=== PATIENT | female | born 1970 | race Caucasian/White ===

== ENCOUNTER → 2018-01-16 16:15 | Outpatient (CLI) | payer BC, SELFPAY ==
--- NOTE | 2018-01-16 | NVE_ITS ---
Venous Exam Indications: 782.3 Edema. 729.5 Pain in limb. History of pericarditis Denies recenttrauma. IMPRESSIONS No evidence of deep or superficial vein thrombosis involving the left lower extremity Left lower extremity venous duplex evaluation. Doppler flow study including spectral analysis, color and fatima scale imaging. Location: Vascular laboratory. Patient status: Outpatient. Tables: Venous flow and imaging: + +-------+ + Location Overall Flow properties + +-------+ + Left common femoral Patent Normal phasicity; spontaneous; normal augmentation; compressible + +-------+ + Left saphenofemoral junction Patent Compressible + +-------+ + Left profunda femoral Patent Compressible + +-------+ + Left femoral Patent Normal phasicity; spontaneous; normal augmentation; compressible + +-------+ + Left greater saphenous Patent Normal phasicity; spontaneous; normal augmentation; compressible + +-------+ + Left popliteal Patent Normal phasicity; spontaneous; normal augmentation; compressible + +-------+ + Left posterior tibial Patent Compressible + +-------+ + Left peroneal Patent Compressible + +-------+ + Left gastrocnemius Patent Compressible + +-------+ + Left soleal Patent Compressible + +-------+ + (Report amended ) Electronically signed by: Sebastien Erickson [id number]
== END ==
PROVIDERS: PCP Internal Medicine Adolescent Medicine; Visit Provider Nurse Practitioner Family
DX: M79.89 Other specified soft tissue disorders (principal)
CPT/HCPCS: 93971

== ENCOUNTER → 2018-10-16 17:40 | Outpatient (CLI) | payer BC, SELFPAY ==
[2018-10-17 14:04] LABS: Microscopic, Urine URINE MICROSCOPIC (MICROSCOPIC)
[2018-10-17 14:10] LABS: Appearance,Urine CLEAR (Clear); Bilirubin,Urine Negative (Negative); Blood, Urine Negative (Negative); Color,Urine YELLOW (Yellow); Glucose,Urine (UA) Negative (Negative); Ketones,Urine Negative (Negative); Leukocyte Esterase,Urine Negative (Negative); Nitrate,Urine Negative (Negative); Protein,Urine Negative (Negative); Urobilinogen,Urine 0.2 EU/dl (0.2)
[2018-10-17 14:16] LABS: WBC,Urine Occasional #/hpf (0-3)
== END ==
PROVIDERS: Visit Provider Urology
DX: R30.0 Dysuria (principal)
CPT/HCPCS: 81001; 87086

== ENCOUNTER 2018-11-21 13:33 | Emergency (ER) | payer BC, SELFPAY ==
[2018-11-21 13:52] VITALS: BP 148/98; PULSE 95; RESP 18; TEMP 36.6; O2SAT 99; BMI 31.7
[2018-11-21 14:04] LABS: Apearance,Urine Clear (Clear); Color,Urine Yellow (Yellow)
[2018-11-21 14:05] LABS: Bilirubin,Urine Negative (Negative); Blood, Urine Negative (Negative); Glucose,Urine (UA) Negative (Negative); Ketones,Urine Negative (Negative); Protein,Urine Negative (Negative); Urobilinogen,Urine 0.2 EU/dl (0.2)
[2018-11-21 14:06] LABS: UTC Leukocyte Esterase,Urine Trace (Negative); UTC Nitrate,Urine Negative (Negative)
--- NOTE | 2018-11-21 14:07 | HMH.EDUTC ---
[facility] [place] Clinical Impression: UTI (urinary tract infection) Qualifiers: Urinary tract infection type: site unspecified Hematuria presence: without hematuria Qualified Code(s): N39.0 - Urinary tract infection, site not specified Disposition: Home, Self-Care Condition on Discharge: Good Instructions: Urinary Tract Infection Additional Instructions: 1. Drink plenty of fluids. 2. Take the antibiotics as prescribed. 3. Follow up with your urologist as you had already planned to do. 4. Return or f/u if you are not getting better in 24 hours or so. GO TO THE ER FOR ANY WORSENING SYMPTOMS OR LIFE THREATENING SYMPTOMS Prescriptions: Ciprofloxacin/Ciprofloxa HCl [Ciprofloxacin ER 500 mg Tab] 500 mg PO DAILY 10 Days #20 tab Phenazopyridine HCl [Pyridium 200mg Tablet] 200 pow PO TID #6 tab Referrals: Luisito Luciano MD [Primary Care Provider] - Time of Disposition: 14:17 Medical Decision Making - Medical Records Medical records reviewed: No: I reviewed the patient's medical records. - Herson Inquiry Pt receiving controlled substance: No Herson was queried for this patient: No Vital Signs: 11/21/18 13:52 11/21/18 14:18 Temperature 97.9 F 98.1 F Temperature Source Tympanic Oral Pulse Rate 89 Pulse Rate [Brachial] 95 H Respiratory Rate 18 18 Blood Pressure 141/90 H Blood Pressure [Right Arm] 148/98 H Blood Pressure Mean [Right Arm] 114 Blood Pressure Source [Right Arm] Automatic Cuff 02 Sat by Pulse Oximetry 99 Oxygen Delivery Method Room Air Room Air - Lab Data Lab results reviewed: Yes: I reviewed the patient's lab results. Lab Results 11/21/18 13:45: Urine Color Yellow, Urine Appearance Clear, Urine pH 6.0, Ur Specific [place] 1.020, Urine Protein Negative, Urine Glucose (UA) Negative, Urine Ketones Negative, Urine Blood Negative, Urine Nitrate Negative, Urine Bilirubin Negative, Urine Urobilinogen 0.2, Ur Leukocyte Esterase Trace, Influenza Type A Ag Negative, Influenza Type B Ag Negative Orders (Tests/Meds): ORDERS Category Date Time Status Urine Culture Stat Micro 11/21/18 14:20 Received [facility] [place] HPI - General Stated complaint: Possible UTI Time Seen by Provider: 11/21/18 14:00 Mode of Arrival: Ambulatory Source of Information: Patient Limitations: No Limitations Description of Symptoms (Recalled from Triage Doc. by RN): fever, chills, and body aches, along with painful and frequent urination for 3 days HEENT Symptoms (Recalled from RN notes): Yes Resp Symptoms (Recalled from RN notes): No Skin Symptoms (Recalled from RN notes): No MS Symptoms (Recalled from RN notes): No Functional Status (Recalled from RN notes): n/a - History of Present Illness Provider Complaint: Pt states she has been having a fever, chills, and body aches, along with painful and frequent urination for 3 days - Related Data Previous Rx's Medication Instructions Recorded Azithromycin [Z-Fede 250mg Tab] 250 mg PO UD DOSE PK #6 tab 11/02/18 Promethazine/Dextromethorphan 5 ml PO Q6HP PRN #240 syrup 11/02/18 [Promethazine-Dm Syrup] Ciprofloxacin/Ciprofloxa HCl 500 mg PO DAILY 10 Days #20 tab 11/21/18 [Ciprofloxacin ER 500 mg Tab] Phenazopyridine HCl [Pyridium 200 pow PO TID #6 tab 11/21/18 200mg Tablet] Allergies Allergy/AdvReac Type Severity Reaction Status Date / Time butorphanol [From STADOL] Allergy Severe S-DIFF. Verified 11/02/18 17:08 BREATHING Sulfa (Sulfonamide Allergy Intermediate I-HIVES Verified 11/02/18 17:08 Antibiotics) [SULFA (SULFONAMIDE ANTIBIOTICS)] - Worker's Comp Is this a Worker's Comp case?: No Is this an [facility] Worker's Comp?: No Is this a [place] Worker's Comp?: No [facility] History - Hepatitis A Screen Drug use history?: No High risk sexual behaviors?: No History of sexually transmitted infection?: No Currently employed?: No Childcare worker?: No Do you have indoor plumbing?: Yes Do you have electricity?: Yes Att
[2018-11-21 14:12] LABS: UTC Influenza A Antigen Negative (Negative); UTC Influenza B Antigen Negative (Negative)
--- NOTE | 2018-11-21 14:14 | ED_ITS ---
[facility] [place] Disposition Clinical Impression: UTI (urinary tract infection) Qualifiers: Urinary tract infection type: site unspecified Hematuria presence: without hematuria Qualified Code(s): N39.0 - Urinary tract infection, site not specified Disposition: Home, Self-Care Condition on Discharge: Good Instructions: Urinary Tract Infection Additional Instructions: 1. Drink plenty of fluids. 2. Take the antibiotics as prescribed. 3. Follow up with your urologist as you had already planned to do. 4. Return or f/u if you are not getting better in 24 hours or so. GO TO THE ER FOR ANY WORSENING SYMPTOMS OR LIFE THREATENING SYMPTOMS Prescriptions: Ciprofloxacin/Ciprofloxa HCl [Ciprofloxacin ER 500 mg Tab] 500 mg PO DAILY 10 Days #20 tab Phenazopyridine HCl [Pyridium 200mg Tablet] 200 pow PO TID #6 tab Referrals: Luisito Luciano MD [Primary Care Provider] - Time of Disposition: 14:17 Medical Decision Making - Medical Records Medical records reviewed: No: I reviewed the patient's medical records. - Herson Inquiry Pt receiving controlled substance: No Herson was queried for this patient: No Vital Signs: 11/21/18 13:52 11/21/18 14:18 Temperature 97.9 F 98.1 F Temperature Source Tympanic Oral Pulse Rate 89 Pulse Rate [Brachial] 95 H Respiratory Rate 18 18 Blood Pressure 141/90 H Blood Pressure [Right Arm] 148/98 H Blood Pressure Mean [Right Arm] 114 Blood Pressure Source [Right Arm] Automatic Cuff 02 Sat by Pulse Oximetry 99 Oxygen Delivery Method Room Air Room Air - Lab Data Lab results reviewed: Yes: I reviewed the patient's lab results. Lab Results 11/21/18 13:45: Urine Color Yellow, Urine Appearance Clear, Urine pH 6.0, Ur Specific [place] 1.020, Urine Protein Negative, Urine Glucose (UA) Negative, Urine Ketones Negative, Urine Blood Negative, Urine Nitrate Negative, Urine Bilirubin Negative, Urine Urobilinogen 0.2, Ur Leukocyte Esterase Trace, Influenza Type A Ag Negative, Influenza Type B Ag Negative Orders (Tests/Meds): ORDERS Category Date Time Status Urine Culture Stat Micro 11/21/18 14:20 Received [facility] [place] HPI - General Stated complaint: Possible UTI Time Seen by Provider: 11/21/18 14:00 Mode of Arrival: Ambulatory Source of Information: Patient Limitations: No Limitations Description of Symptoms (Recalled from Triage Doc. by RN): fever, chills, and body aches, along with painful and frequent urination for 3 days HEENT Symptoms (Recalled from RN notes): Yes Resp Symptoms (Recalled from RN notes): No Skin Symptoms (Recalled from RN notes): No MS Symptoms (Recalled from RN notes): No Functional Status (Recalled from RN notes): n/a - History of Present Illness Provider Complaint: Pt states she has been having a fever, chills, and body aches, along with painful and frequent urination for 3 days - Related Data Previous Rx's Medication Instructions Recorded Azithromycin [Z-Fede 250mg Tab] 250 mg PO UD DOSE PK #6 tab 11/02/18 Promethazine/Dextromethorphan 5 ml PO Q6HP PRN #240 syrup 11/02/18 [Promethazine-Dm Syrup] Ciprofloxacin/Ciprofloxa HCl 500 mg PO DAILY 10 Days #20 tab 11/21/18 [Ciprofloxacin ER 500 mg Tab] Phenazopyridine HCl [Pyridium 2
[2018-11-21 14:18] VITALS: BP 141/90; PULSE 89; RESP 18; TEMP 36.7; O2SAT 100
== END 2018-11-21 14:21 | disposition home or self-care (01) ==
PROVIDERS: Emergency Provider Nurse Practitioner Family; PCP Internal Medicine Adolescent Medicine
DX: N30.00 Acute cystitis without hematuria (principal); Z88.2 Allergy status to sulfonamides
CPT/HCPCS: 81003; 87086; 87088; 87186; 87804; 99202

== ENCOUNTER → 2019-01-27 10:20 | Outpatient (CLI) | payer BC, SELFPAY ==
--- NOTE | 2019-01-27 10:21 | US_ITS ---
US Kidney CLINICAL INDICATION: Frequent urinary tract infections, history of renal stones ITS.REASON: R10.9 Unspecified abdominal pain ORDERING PHYSICIAN: Fawad Miles MD PATIENT AGE: 48 years Comparison: None FINDINGS: The kidneys are normal size shape and position. No hydronephrosis mass perinephric fluid or other significant anomalies. No obvious renal calculi. IMPRESSION: Negative bilateral renal ultrasound
== END ==
PROVIDERS: PCP Internal Medicine Adolescent Medicine; Visit Provider Urology
DX: R10.9 Unspecified abdominal pain (principal)
CPT/HCPCS: 76770

== ENCOUNTER 2019-03-01 11:36 | Emergency (ER) | payer BC, SELFPAY ==
[2019-03-01 11:50] VITALS: BP 130/87; PULSE 83; RESP 18; TEMP 36.9; O2SAT 98; BMI 31.7
--- NOTE | 2019-03-01 12:00 | HMH.EDUTC ---
[facility] [place] [facility] [place] Clinical Impression: Otitis media Qualifiers: Otitis media type: unspecified Laterality: bilateral Qualified Code(s): H66.93 - Otitis media, unspecified, bilateral Disposition: Home, Self-Care Condition on Discharge: Good Instructions: Middle Ear Infection, Ear Infections (Middle Ear) (Alternative Therapy), Ear Infections (Alternative Therapy), Ibuprofen, Acetaminophen (Alternative Therapy) Additional Instructions: *Monitor Temp, Over the counter Motrin or Tylenol as directed/as needed Tylenol every 4 hours and Motrin every 6 hours (as long as your family doctor has told you that you can take it) for fever or pain. and straight to ER if unable to lower temp less than 101.0 after medication given *Warm salt water gargles may help to soothe the throat *Throat Lozenges *Warm fluids *Sleep elevated *Humidifier/Vaporizer Take antibiotics as prescribed Return if needed Follow up IMMEDIATELY for new or worsening symptoms or no Noticeable improvement over the next 48-72 hours. 911 for difficulty breathing or swallowing Prescriptions: Amoxicillin [Amoxicillin 500mg Cap] 500 mg PO TID #30 cap Referrals: Luisito Luciano MD [Primary Care Provider] - As needed Time of Disposition: 12:10 Medical Decision Making - Herson Inquiry Pt receiving controlled substance: No Herson was queried for this patient: No Vital Signs: 03/01/19 11:50 Temperature 98.4 F Temperature Source Oral Pulse Rate [Left Apical] 83 Respiratory Rate 18 Blood Pressure [Right Arm] 130/87 Blood Pressure Mean [Right Arm] 101 02 Sat by Pulse Oximetry 98 Oxygen Delivery Method Room Air [facility] [place] [facility] [place]PI - General Stated complaint: ear pain Time Seen by Provider: 03/01/19 12:03 Mode of Arrival: Ambulatory Source of Information: Patient Limitations: No Limitations Description of Symptoms (Recalled from Triage Doc. by RN): PT C/O RT EAR PAIN HEENT Symptoms (Recalled from RN notes): Yes Resp Symptoms (Recalled from RN notes): No Skin Symptoms (Recalled from RN notes): No MS Symptoms (Recalled from RN notes): No Functional Status (Recalled from RN notes): N/A - History of Present Illness Provider Complaint: Patient states that she has been having pain in her right ear that has continued to get worse since Friday State that she had dental work done a few weeks ago on the right side and not sure how long the ear had been hurting because she thought it was still pain from her dental work - Related Data Home Medications Medication Instructions Recorded Confirmed levothyroxine 88 mcg tablet 88 mcg PO DAILY 01/14/19 02/11/19 Previous Rx's Medication Instructions Recorded Amoxicillin [Amoxicillin 500mg 500 mg PO TID #30 cap 03/01/19 Cap] Allergies Allergy/AdvReac Type Severity Reaction Status Date / Time butorphanol [From STADOL] Allergy Severe S-DIFF. Verified 02/11/19 12:06 BREATHING Sulfa (Sulfonamide Allergy Intermediate I-HIVES Verified 02/11/19 12:06 Antibiotics) [SULFA (SULFONAMIDE ANTIBIOTICS)] - Worker's Comp Is this a Worker's Comp case?: No [facility] History - Hepatitis A Screen Drug use history?: No High risk sexual behaviors?: No History of sexually transmitted infection?: No Currently employed?: No Childcare worker?: No Do you have indoor plumbing?: Yes Do you have electricity?: Yes Attestation statement:: This patient has been screened for Hepatitis A risk factors. I have reviewed the patient's past medical history: Yes Medical History: Denies:: Cancer, Diabetes Mellitus Type 1, Diabetes Mellitus Type 2, MRSA Laterality Cases: Bilateral: Myringotomy (Ear Tubes), Tonsillectomy Other Surgeries: Yes: Hysterectomy-Total Amputation: No Fractures: No - Social History Smoking Status: Never smoker Alcohol Intake: never Occupational Status: employed Household Members: spouse, children - Psychiatric History Expresses thoughts of harming self/others: None Suicide Plan
--- NOTE | 2019-03-01 12:03 | ED_ITS ---
[facility] Disposition Clinical Impression: Otitis media Qualifiers: Otitis media type: unspecified Laterality: bilateral Qualified Code(s): H66.93 - Otitis media, unspecified, bilateral Disposition: Home, Self-Care Condition on Discharge: Good Instructions: Middle Ear Infection, Ear Infections (Middle Ear) (Alternative Therapy), Ear Infections (Alternative Therapy), Ibuprofen, Acetaminophen ( Alternative Therapy) Additional Instructions: *Monitor Temp, Over the counter Motrin or Tylenol as directed/as needed Tylenol every 4 hours and Motrin every 6 hours (as long as your family doctor has told you that you can take it) for fever or pain. and straight to ER if unable to lower temp less than 101.0 after medication given *Warm salt water gargles may help to soothe the throat *Throat Lozenges *Warm fluids *Sleep elevated *Humidifier/Vaporizer Take antibiotics as prescribed Return if needed Follow up IMMEDIATELY for new or worsening symptoms or no Noticeable improvement over the next 48-72 hours. 911 for difficulty breathing or swallowing Prescriptions: Amoxicillin [Amoxicillin 500mg Cap] 500 mg PO TID #30 cap Referrals: Luisito Luciano MD [Primary Care Provider] - As needed Time of Disposition: 12:10 Medical Decision Making - Herson Inquiry Pt receiving controlled substance: No Herson was queried for this patient: No Vital Signs: 03/01/19 11:50 Temperature 98.4 F Temperature Source Oral Pulse Rate [Left Apical] 83 Respiratory Rate 18 Blood Pressure [Right Arm] 130/87 Blood Pressure Mean [Right Arm] 101 02 Sat by Pulse Oximetry 98 Oxygen Delivery Method Room Air [facility] HPI - General Stated complaint: ear pain Time Seen by Provider: 03/01/19 12:03 Mode of Arrival: Ambulatory Source of Information: Patient Limitations: No Limitations Description of Symptoms (Recalled from Triage Doc. by RN): PT C/O RT EAR PAIN HEENT Symptoms (Recalled from RN notes): Yes Resp Symptoms (Recalled from RN notes): No Skin Symptoms (Recalled from RN notes): No MS Symptoms (Recalled from RN notes): No Functional Status (Recalled from RN notes): N/A - History of Present Illness Provider Complaint: Patient states that she has been having pain in her right ear that has continued to get worse since Friday State that she had dental work done a few weeks ago on the right side and not sure how long the ear had been hurting because she thought it was still pain from her dental work - Related Data Home Medications Medication Instructions Recorded Confirmed levothyroxine 88 mcg tablet 88 mcg PO DAILY 01/14/19 02/11/19 Previous Rx's Medication Instructions Recorded Amoxicillin [Amoxicillin 500mg 500 mg PO TID #30 cap 03/01/19 Cap] Allergies Allergy/AdvReac Type Severity Reaction Status Date / Time butorphanol [From STADOL] Allergy Severe S-DIFF. Verified 02/11/19 12:06 BREATHING Sulfa (Sulfonamide Allergy Intermediate I-HIVES Verified 02/11/19 12:06 Antibiotics) [SULFA (SULFONAMIDE ANTIBIOTICS)] - Worker's Comp Is this a Worker's Comp case?: No H History - Hepatitis A Screen Drug use history?: No High risk sexual behaviors?: No Hist
[2019-03-01 12:11] VITALS: BP 126/66; PULSE 65; RESP 18; TEMP 36.6; O2SAT 100
== END 2019-03-01 12:14 | disposition home or self-care (01) ==
PROVIDERS: Emergency Provider Nurse Practitioner; PCP Internal Medicine Adolescent Medicine
DX: H66.93 Otitis media, unspecified, bilateral (principal); Z88.2 Allergy status to sulfonamides
CPT/HCPCS: 99201

== ENCOUNTER 2019-03-23 17:10 | Emergency (ER) | payer BC, SELFPAY ==
[2019-03-23 17:27] VITALS: BP 138/89; PULSE 70; RESP 20; TEMP 36.8; O2SAT 100; BMI 31.6
--- NOTE | 2019-03-23 17:54 | HMH.EDUTC ---
[facility] [place] Disposition Clinical Impression: Otitis media Qualifiers: Otitis media type: suppurative Chronicity: acute Laterality: left Recurrence: non-recurrent Spontaneous tympanic membrane rupture: without spontaneous rupture Qualified Code(s): H66.002 - Acute suppurative otitis media without spontaneous rupture of ear drum, left ear Disposition: Home, Self-Care Condition on Discharge: Good Instructions: Middle Ear Infection Additional Instructions: Drink plenty of fluids. Take tylenol or ibuprofen for pain or fever Take all the antibiotics as prescribed. Follow up with your regular doctor. Follow up with Dr. Lion. You may need to have t-tubes put back in if you keep getting ear infections. GO TO THE ER FOR ANY WORSENING OR LIFE THREATENING SYMPTOMS Prescriptions: methylPREDNISolone [Medrol] 4 mg PO DIRECTED 6 Days #21 tab.ds.pk Cefdinir [Omnicef 300mg Capsule] 300 mg PO BID #20 cap Referrals: Luisito Luciano MD [Primary Care Provider] - Time of Disposition: 17:55 Medical Decision Making - Medical Records Medical records reviewed: Yes: I reviewed the patient's medical records. - Herson Inquiry Pt receiving controlled substance: No Herson was queried for this patient: No Vital Signs: 03/23/19 17:27 03/23/19 17:56 Temperature 98.3 F 98.3 F Temperature Source Oral Pulse Rate 70 Pulse Rate [Right Radial] 70 Respiratory Rate 20 20 Blood Pressure 138/89 Blood Pressure [Right Arm] 138/89 Blood Pressure Mean [Right Arm] 105 Blood Pressure Source [Right Arm] Automatic Cuff Blood Pressure Position [Right Arm] Sitting 02 Sat by Pulse Oximetry 100 Oxygen Delivery Method Room Air [facility] [place] HPI - General Stated complaint: ear ache Time Seen by Provider: 03/23/19 17:54 Mode of Arrival: Ambulatory Source of Information: Patient Limitations: No Limitations Description of Symptoms (Recalled from Triage Doc. by RN): C/O LT EARACHE HEENT Symptoms (Recalled from RN notes): Yes (EARACHE) Resp Symptoms (Recalled from RN notes): No Skin Symptoms (Recalled from RN notes): No MS Symptoms (Recalled from RN notes): No Functional Status (Recalled from RN notes): N/A - History of Present Illness Provider Complaint: She c/o left ear ache for the past 2 days. - Related Data Home Medications Medication Instructions Recorded Confirmed levothyroxine 88 mcg tablet 88 mcg PO DAILY 01/14/19 02/11/19 Previous Rx's Medication Instructions Recorded Amoxicillin [Amoxicillin 500mg 500 mg PO TID #30 cap 03/01/19 Cap] Cefdinir [Omnicef 300mg Capsule] 300 mg PO BID #20 cap 03/23/19 methylPREDNISolone [Medrol] 4 mg PO DIRECTED 6 Days #21 03/23/19 tab.ds.pk Allergies Allergy/AdvReac Type Severity Reaction Status Date / Time butorphanol [From STADOL] Allergy Severe S-DIFF. Verified 02/11/19 12:06 BREATHING Sulfa (Sulfonamide Allergy Intermediate I-HIVES Verified 02/11/19 12:06 Antibiotics) [SULFA (SULFONAMIDE ANTIBIOTICS)] - Worker's Comp Is this a Worker's Comp case?: No [facility] History - Hepatitis A Screen Drug use history?: No High risk sexual behaviors?: No History of sexually transmitted infection?: No Currently employed?: No Childcare worker?: No Do you have indoor plumbing?: Yes Do you have electricity?: Yes Attestation statement:: This patient has been screened for Hepatitis A risk factors. I have reviewed the patient's past medical history: Yes Medical History: Denies:: Cancer, Diabetes Mellitus Type 1, Diabetes Mellitus Type 2, MRSA Laterality Cases: Bilateral: Myringotomy (Ear Tubes), Tonsillectomy Other Surgeries: Yes: Hysterectomy-Total Amputation: No Fractures: No - Social History Smoking Status: Never smoker Alcohol Intake: never Occupational Status: employed Household Members: spouse, children - Psychiatric History Expresses thoughts of harming self/others: None Suicide Plan Description: No Plan ROS Obtained: Yes All
[2019-03-23 17:56] VITALS: BP 138/89; PULSE 70; RESP 20; TEMP 36.8; O2SAT 100
== END 2019-03-23 17:57 | disposition home or self-care (01) ==
PROVIDERS: Emergency Provider Nurse Practitioner Family; PCP Internal Medicine Adolescent Medicine
DX: H66.002 Acute suppurative otitis media without spontaneous rupture of ear drum, left ear (principal)
CPT/HCPCS: 99201

== ENCOUNTER → 2020-06-19 10:48 | Outpatient (CLI) | payer BC, SELFPAY ==
[2020-06-19 10:53] LABS: Microscopic, Urine URINE MICROSCOPIC (MICROSCOPIC)
[2020-06-19 14:10] LABS: Appearance,Urine CLEAR (Clear); Bilirubin,Urine Negative (Negative); Blood, Urine Negative (Negative); Color,Urine YELLOW (Yellow); Glucose,Urine (UA) Negative (Negative); Ketones,Urine Negative (Negative); Leukocyte Esterase,Urine Negative (Negative); Nitrate,Urine Negative (Negative); Protein,Urine Negative (Negative); Specific Gravity, Urine >= 1.030 (1.005-1.030); Urobilinogen,Urine 0.2 EU/dl (0.2)
== END ==
PROVIDERS: Visit Provider Urology
DX: N39.0 Urinary tract infection, site not specified (principal)
CPT/HCPCS: 81001

== ENCOUNTER → 2021-03-20 17:22 | Outpatient (CLI) | payer BC, SELFPAY | PROVIDERS: Visit Provider Nurse Practitioner Family | DX: N39.0 Urinary tract infection, site not specified (principal) | CPT/HCPCS: 87086 ==

== ENCOUNTER → 2021-03-21 08:45 | Outpatient (CLI) | payer BC, SELFPAY ==
[2021-03-21 13:58] LABS: Basophils % 0.7 % (0.1-2.0); Eosinophils # 0.2 K/mm3 (0.0-0.4); Eosinophils % 3.7 % (0.1-12.0); Hematocrit 35.3 % (37.0-47.0); Hemoglobin 12.5 g/dL (12.2-16.2); Lymphocytes # 1.7 K/mm3 (0.7-4.5); Lymphocytes % 29.3 % (10-50); Mean Corpuscular HGB Conc 35.6 g/dL (31.8-35.4); Mean Corpuscular Hemoglobin 30.1 pg (27.0-31.2); Mean Corpuscular Volume 84.7 fl (81-99); Mean Platelet Volume 9.3 fl (7.4-10.4); Monocytes # 0.3 K/mm3 (0.1-1.0); Monocytes % 5.1 % (1.7-9.3); Neutrophils # 3.6 K/mm3 (1.8-7.8); Neutrophils % 61.2 % (37.0-80.0); Platelet Count 243 K/mm3 (142-424); Red Blood Count 4.16 M/mm3 (4.20-5.40); Red Cell Distribution Width 13.1 % (11.5-17.5); White Blood Count 5.8 K/mm3 (4.8-10.8)
[2021-03-21 14:14] LABS: Alanine Aminotransferase 16 U/L (12-78); Albumin Level 3.9 g/dl (3.5-5.0); Albumin/Globulin Ratio 1.6 (1.1-1.8); Alkaline Phosphatase 90 U/L (38-126); Aspartate Amino Transferase 24 U/L (14-36); Bilirubin,Total 0.6 mg/dl (0.2-1.3); Blood Urea Nitrogen 18 mg/dl (7-17); Carbon Dioxide 28 mmol/L (22.0-30.0); Chloride 107 mmol/L (98-107); Cholesterol 210 mg/dl (140-200); Estimated Glomerular Filt Rate 89 ml/min (>60); GFR (African American) 107 ML/MIN (>60); Globulin 2.4 g/dL (1.3-3.2); Glucose 98 mg/dl (74-100); HDL Cholesterol 52 mg/dl (40-60); Sodium 139 mmol/L (136-145); Total Protein,Serum 6.3 g/dl (6.3-8.2); Triglycerides 171 mg/dl (30-150); VLDL Cholesterol 34 mg/dL (0-40)
[2021-03-21 14:31] LABS: 25-OH Vitamin D, Total 38.9 ng/mL (30-100)
[2021-03-21 14:41] LABS: Direct LDL Cholesterol 119.23 mg/dL (100-129)
[2021-03-21 15:04] LABS: Vitamin B12 655 pg/mL (239-931)
== END ==
PROVIDERS: Visit Provider Nurse Practitioner Family
DX: Z00.00 Encounter for general adult medical examination without abnormal findings (principal); E53.8 Deficiency of other specified B group vitamins; E55.9 Vitamin D deficiency, unspecified; N39.0 Urinary tract infection, site not specified
CPT/HCPCS: 36415; 80053; 80061; 82306; 82607; 85025

== ENCOUNTER → 2021-05-12 17:08 | Outpatient (CLI) | payer BC, SELFPAY | PROVIDERS: PCP Internal Medicine Gastroenterology; Visit Provider Internal Medicine Gastroenterology | DX: Z01.812 Encounter for preprocedural laboratory examination (principal); Z20.822 Contact with and (suspected) exposure to COVID-19; Z12.11 Encounter for screening for malignant neoplasm of colon | CPT/HCPCS: U0003 ==

== ENCOUNTER 2021-05-14 11:39 | Day surgery (SDC) | payer BC, SELFPAY ==
[2021-05-09 13:48] VITALS: BMI 34.0
--- NOTE | 2021-05-14 09:15 | MM_ITS ---
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 R2 CAD reviewed. FINDINGS: Average fibroglandular tissue. Scattered benign-appearing calcifications. Are several small benign-appearing nodules of the right breast which were not readily apparent previously but may have not been seen due to the overlying fibroglandular tissue which has shown some progression. Nodularity noted in the left retroareolar region mid to anterior 3rd probably unchanged given difference in fibroglandular density. IMPRESSION: Probably benign findings. Suggest 6 month follow-up BI-RAD Category: 3 Probably Benign Finding Short Term Follow-Up FOLLOW-UP: 6M 6 Month Follow-up (A letter has been sent to the patient regarding results of the study.) Dictated by: Sebastien Erickson MD 05/22/2021 18:12 Sebastien Erickson MD in [place] 05/22/2021 18:12
[2021-05-14 11:52] VITALS: BP 144/84; PULSE 81; RESP 16; TEMP 36.2; O2SAT 99
--- NOTE | 2021-05-14 12:34 | HMH.ANESCL ---
[facility] Anesthesia Checklist - Patient Identification Patient Identification: Arm Band - Structural Data Admitted From: Home Planned Operative Procedure/s: Colonoscopy Consent for Planned Operative Procedure(s) Verified: Yes - NPO Status Verified Time NPO: 00:00 - Additional verifications Anesthesia Reactions: No Hx Blood Transfusions: No Blood Transfusion Reaction: No - Airway Assessment C-Spine Mobility Assessed: Yes TMJ Mobility Assessed: Yes Dentition: Good Dentition - Neurological Assessment Level of Consciousness: Awake Hx Seizures: No Numbness or tingling in extremities: No - Anesthesia Plan Anesthesia Risk discussed: Yes Anesthesia Plan: Verified ASA Class: II Anesthesia Type: MAC [facility] History I have reviewed the patient's past medical history: Yes Medical History: Reports:: Urinary Tract Infection Denies:: Cancer, Diabetes Mellitus Type 1, Diabetes Mellitus Type 2, Internal Pacemaker, MRSA, Seizures *Have you ever received a pneumonia vaccine?: No *Have you received a flu vaccine this season?: Yes Other Medical History: Reports: Hypothyroidism, Other (Hx of pericarditis). Denies: Blood Transfusion Reaction Anesthesia experience/problems:: None Laterality Cases: Bilateral: Myringotomy (Ear Tubes), Tonsillectomy Other Surgeries: Yes: No Previous Surgery, Hysterectomy-Total (1998). No: Pacemaker Amputation: No Fractures: No - *Social History Last grade of school completed: Advanced degree Smoking Status: Never smoker Alcohol Intake: never Substance Use Type: denies use *Occupational Status:: employed Housing: house Household Members: family *Travel in the last 8 weeks: Inside the [facility] Family Hx:: Cancer, Coronary Artery Disease, Diabetes, Hyperlipidemia
--- NOTE | 2021-05-14 13:35 | P.PCN_ITS ---
[facility] Procedure Note Procedure Note:: Colonoscopy Procedure Report: Colonoscopy with cold snare polypectomy and Endo Clip placement Endoscopist: Jose Elam II, MD Referring physician: Lida BAKER Date of Procedure: May 14, 2021 Equipment: Olympus 190 variable stiffness pediatric colonoscope Sedation: MAC sedation Indication: Mrs. Pak is a 51-year-old female who is here for high risk screening colonoscopy. The patient's mother had colon cancer at the age of 56. The patient reports no abdominal pain, weight loss, change in her bowel habits or rectal bleeding. She does state that Macrobid results in some binding/constipation. She does counteract this with eating probiotic yogurt. Procedure: Prior to the procedure, a history and physical exam was performed, and patient's medications and allergies were reviewed. The risks, benefits and alternatives of the sedation and procedure were discussed with the patient. All questions were answered and informed consent was obtained. The patient was brought to the procedure room. Patient identification and proposed procedure were verified by the physician and the nurse. The patient was placed in a left lateral decubitus position and the scope was passed under direct vision. Throughout the procedure, the patient's blood pressure, pulse, and oxygen saturations were monitored continuously. The colonoscopy was accomplished without difficulty. The patient tolerated the procedure well. Findings: On digital rectal examination there was normal rectal tone. There were no external hemorrhoids. The colonoscope was introduced through the anal canal to the rectum and advanced to the cecum. The ileocecal valve and appendiceal orifice were identified. The scope was advanced a short distance into the ileum which appeared grossly normal. The scope was then withdrawn into the colon. There were 4 colon polyps (cecum x2 (4 and 4 mm), transverse x1 (6 mm) and descending x1 (8 to 9 mm)) which were all removed via cold snare polypectomy. The remaining cecum, ascending, transverse, descending, sigmoid and rectum were grossly normal. There were no other mucosal abnormalities identified. Upon retroflexion within the rectum there were grade 1-2 internal hemorrhoids.The preparation was excellent throughout with Oldham Preparation Score of 9. The cecal time was 13 minutes. Impression: 1. Colonic polyps x4 2. Grade 1-2 internal hemorrhoids Plan: I will follow up the polyp pathology and recommend repeat colonoscopy again in 3-5 years based upon the polyp histology and patient's family history. I would encourage a fiber bowel regimen on a long-term daily maintenance basis.
[2021-05-14 13:37] VITALS: BP 87/58; PULSE 66; RESP 18; TEMP 36.4; O2SAT 93
[2021-05-14 13:47] VITALS: BP 99/74; PULSE 65; RESP 18; O2SAT 96
[2021-05-14 13:58] VITALS: BP 111/74; PULSE 69; RESP 18; O2SAT 97
[2021-05-14 14:06] VITALS: BP 117/83; PULSE 68; RESP 18; O2SAT 96
[2021-05-14 15:25] VITALS: O2SAT 97
== END 2021-05-14 14:11 | disposition home or self-care (01) ==
PROVIDERS: PCP Internal Medicine Adolescent Medicine; Visit Provider Internal Medicine Gastroenterology
PROC: 0DJD8ZZ Inspection of Lower Intestinal Tract, Via Natural or Artificial Opening Endoscopic (ICD-10-PCS; CPT 45378; principal; 2021-05-14 14:00)
DX: Z12.31 Encounter for screening mammogram for malignant neoplasm of breast (principal); Z80.0 Family history of malignant neoplasm of digestive organs; K63.5 Polyp of colon; K64.0 First degree hemorrhoids; E03.9 Hypothyroidism, unspecified; Z82.49 Family history of ischemic heart disease and other diseases of the circulatory system; Z83.438 Family history of other disorder of lipoprotein metabolism and other lipidemia; Z83.3 Family history of diabetes mellitus; Z88.2 Allergy status to sulfonamides; Z88.8 Allergy status to other drugs, medicaments and biological substances; Z79.899 Other long term (current) drug therapy
CPT/HCPCS: 45385; 77063; 77067; J2704

== ENCOUNTER → 2021-10-08 15:50 | Outpatient (CLI) | payer BC, SELFPAY ==
[2021-10-08 16:30] LABS: Adenovirus,PCR Not Detected (NotDetected); Bordetella Pertussis Not Detected (NotDetected); Chlamydophila Pneumoniae, PCR Not Detected (NotDetected); Coronavirus 19, PCR Not Detected (NotDetected); Coronavirus 229E Not Detected (NotDetected); Coronavirus NL63 Not Detected (NotDetected); Coronavirus OC43 Not Detected (NotDetected); Coronovirus HKU1,PCR Not Detected (NotDetected); Influenza A, PCR Not Detected (NotDetected); Influenza AH1, 2009 Not Detected (NotDetected); Influenza AH1, PCR Not Detected (NotDetected); Influenza AH3,PCR Not Detected (NotDetected); Influenza B, PCR Not Detected (NotDetected); Mycoplasma Pneumoniae, PCR Not Detected (NotDetected); Parainfluenza 1, PCR Not Detected (NotDetected); Parainfluenza 2, PCR Not Detected (NotDetected); Parainfluenza 3, PCR Not Detected (NotDetected); Parainfluenza 4, PCR Not Detected (NotDetected); Respiratory Syncytial Virus Not Detected (NotDetected); Rhinovirus/Enterovirus Not Detected (NotDetected)
[2021-10-09 00:24] LABS: Human Metapneumovirus Detected (NotDetected)
== END ==
PROVIDERS: PCP Internal Medicine Adolescent Medicine; Visit Provider Internal Medicine Adolescent Medicine
DX: Z20.822 Contact with and (suspected) exposure to COVID-19 (principal); J06.9 Acute upper respiratory infection, unspecified; B97.81 Human metapneumovirus as the cause of diseases classified elsewhere
CPT/HCPCS: 87581; 87632; 87798; C9803; U0003; U0005

== ENCOUNTER → 2022-02-06 14:29 | Outpatient (CLI) | payer BC, SELFPAY ==
--- NOTE | 2022-02-06 14:29 | MM_ITS ---
PROCEDURE INFORMATION: Exam: MG Bilateral Diagnostic Breast Tomosynthesis Exam date and time: 02/06/2022 2:25 PM Age: 51 years old Clinical indication: Short-term radiographic followup; Bilateral nodules TECHNIQUE: Imaging protocol: Bilateral Diagnostic tomosynthesis and 2D mammography including computer-aided detection (CAD) when performed. Unilateral or bilateral exam. COMPARISON: 1. MG MM DIG SCREENING MAMM BI W/CAD 05/14/2021 9:16 AM 2. MG MY Digital Screen BILAT 01/02/2018 2:14 PM FINDINGS: MAMMOGRAPHY: The breast tissue is composed of scattered areas of fibroglandular density. There is no stellate mass, architectural distortion or suspicious microcalcifications in either breast to suggest malignancy. No suspicious nodularity in either breast. No skin thickening or axillary adenopathy. IMPRESSION: No mammographic evidence of malignancy. Annual bilateral mammographic screening is recommended unless otherwise clinically indicated. ASSESSMENT: BI-RADS Category 1: Negative
== END ==
PROVIDERS: PCP Internal Medicine Adolescent Medicine; Visit Provider Obstetrics & Gynecology
DX: R92.8 Other abnormal and inconclusive findings on diagnostic imaging of breast (principal)
CPT/HCPCS: 77062; 77066; G0279

== ENCOUNTER → 2023-06-02 23:20 | Outpatient (CLI) | payer BC, SELFPAY | PROVIDERS: PCP Family Medicine; Visit Provider Family Medicine | DX: N39.0 Urinary tract infection, site not specified (principal) | CPT/HCPCS: 87086 ==

== ENCOUNTER → 2023-06-20 07:14 | Outpatient (CLI) | payer BC, SELFPAY | PROVIDERS: PCP Family Medicine; Visit Provider Family Medicine | DX: N39.0 Urinary tract infection, site not specified (principal) | CPT/HCPCS: 87086 ==

== ENCOUNTER 2025-04-28 11:54 | Outpatient (CLI) | payer BC, SELFPAY ==
--- OUTSIDE RECORDS SUMMARY | 2025-05-02 11:58 | XMS_ITS | Data Portability ---
Author Organization [facility] [place] CL[place] Address [address] [place] [address] Care Team Providers Care Supervisor Baking Name Role Phone ISRAEL SAUCEDA Radio Repairman AKASH BALDERAS Primary Care Provider KENROY PALACIOS Referring Provider Assessment No assessment recorded. Plan of Treatment Reminders Order Date Submit Date Provider Last Modified By Organization Details Last Modified Time Details Appointments ANNUAL MULTIM[employer] PROJECT MANAGER 2025 08:00A Michelle REED [employer]PORATE LEGAL INTERN Not available Not available Not available RECHECK 2025 02:30P Michelle MORA MD Not available Not available Not available Lab TSH, serum or plasma 2024 025 [facility], [address] [place] [address], [address], 12/06/2024 17:00:15 T4, free, serum 2024 025 [facility], [address] [place] [address], [address], 12/06/2024 17:00:14 T3, free, serum or plasma 2024 025 [facility], [address] [place] [address], [address], 12/06/2024 17:00:13 pap, LB 2024 025 [facility], [address] [place] [address], [address], 11/04/2024 16:51:32 HPV DNA, high-risk 2024 025 [facility], [address] [place] [address], [address], 10/29/2024 16:37:35 magnesium , QN, serum or plasma 2023 024 [facility], [address] [place] [address], [address], 12/08/2023 17:11:51 CMP, serum or plasma 2023 024 [facility], [address] [place] [address], [address], 12/08/2023 17:11:53 vitamin D, 25-hydrox y, total, serum 2023 024 [facility], [address] [place] [address], [address], 12/08/2023 17:11:20 lipid panel, serum 2023 024 [facility], [address] [place] [address], [address], 12/08/2023 17:11:56 TSH, serum or plasma 2023 024 [facility], [address] [place] [address], [address], 12/08/2023 17:06:13 T4, free, serum 2023 024 [facility], [address] [place] [address], [address], 12/08/2023 17:06:11 T3, free, serum or plasma 2023 024 [facility], [address] [place] [address], [address], 12/08/2023 17:06:14 vitamin B12 + folate, serum or blood 2023 024 [facility], [address] [place] [address], [address], 12/08/2023 17:11:21 iron + total iron-bind ing capacity (TIBC), serum 2023 024 [facility], [address] [place] [address], [address], 12/08/2023 17:11:54 glycohemo globin, total, blood 2023 024 [facility], [address] [place] [address], [address], 12/08/2023 16:51:48 CBC w/ auto diff 2023 024 [facility], [address] [place] [address], [address], 12/08/2023 16:37:46 iron + total iron-bind ing capacity (TIBC), serum [email or web address] [place] [address] Laboratory, [address] [place] [address], [address], 10/12/2024 11:38:44 urinalysi s panel, auto 2022 023 Cu/Lc Urology [address], [facility], [place], [address], 09/16/2023 20:00:22 Referral None recorded. Procedures None recorded. Surgeries None recorded. Imaging None recorded. Medication Orders estradiol 0.01% (0.1 mg/gram) vaginal cream 2024 025 [facility], [address] [facility], [place], [address], 10/27/2024 15:39:51 Patient TargetsNo targets recorded. Patient Instructions Encounter Date Encounter Id Patient Instructions Last Modified By Organization Details Last Modified Time 09/15/2023 [id number] do 3 day voiding diary Not available 09/16/2023 19:59:43 09/26/2023 [id number] continue mcbd suppression Not available 09/26/2023 14:06:12 Reason for Referral None Reported. Results Created Date Observation Date Name Description Value Unit Range Abnormal Flag Note LastModifiedBy Organization Detail LastModifiedTime 09/15/20 23 09/15/2023 urina lysis panel , auto Unknown Analyte Clean Catch Not Available Cu/Lc Urolo gy [facility] [address] [facility], [place], [address], 09/15/2023 11:06:01 09/15/20 23 09/15/2023 urina lysis panel , auto Unknown Analyte Yellow Not Available Cu/Lc Urology [facility] [address] [facility], [place], [address], 09/15/2023 11:06:01 09/15/20 23 09/15/2023 urina lysis panel , auto Unknown Analyte Clear Not Available Cu/Lc Urology [facility] [address] [facility], [place], [address], 09/15/2023 11:06:01 09/15/20 23 09/15/2023 urina lysis panel , auto Unknown Analyte 1.015 Not Available Cu/Lc Urology [facility] [address] [facility], [place], [address], 09/15/2023 11:06:01 09/15/20 23 09/15/2023 urina lysis panel , auto Unknown Analyte 5.0 Not Available Cu/Lc Urology [facility] [address] [facility], [place], [address], 09/15/2023 11:06:01 09/15/20 23 09/15/2023 urina lysis panel , auto Unknown Analyte 25 Rivka/ul Trace Not Available Cu/Lc Urolo gy [address], [place], [address], 09/15/2023 11:06:01 09/15/20 23 09/15/2023 urina lysis panel , auto Unknown Analyte Negati ve Not Available Cu/Lc Urolo gy [address], [place], [address], 09/15/2023 11:06:01 09/15/20 23 09/15/2023 urina lysis panel , auto Unknown Analyte Negati ve Not Available Cu/Lc Urolo gy [address] [facility], [place], [address], 09/15/2023 11:06:01 09/15/20 23 09/15/2023 urina lysis panel , auto Unknown Analyte Normal Not Available Cu[facility]Lc Urology [address] [facility], [place], [address], 09/15/2023 11:06:01 09/15/20 23 09/15/2023 urina lysis panel , auto Unknown Analyte Negati ve Not Available Cu/Lc Urolo gy [address] [facility], [place], [address], 09/15/2023 11:06:01 09/15/20 23 09/15/2023 urina lysis panel , auto Unknown Analyte Normal Not Available Cu[facility]Lc Urology [address] [facility], [place], [address], 09/15/2023 11:06:01 09/15/20 23 09/15/2023 urina lysis panel , auto Unknown Analyte Negati ve Not Available Cu/Lc Urolo gy [address] [facility], [place], [address], 09/15/2023 11:06:01 09/15/20 23 09/15/2023 urina lysis panel , auto Unknown Analyte Trace Not Available Cu/Lc Urology [address] [facility], [place], [address], 09/15/2023 11:06:01 09/26/20 23 09/26/2023 urina lysis panel , auto Unknown Analyte Clean Catch Not Available [facility] Surgery Schedule [address] [place], [address], 09/26/2023 13:31:04 09/26/20 23 09/26/2023 urina lysis panel , auto Unknown Analyte Yellow Not Available [facility] Surgery Schedule [address] [place], [address], 09/26/2023 13:31:04 09/26/20 23 09/26/2023 urina lysis panel , auto Unknown Analyte Clear Not Available [facility] Surgery Schedule [address] [place], [address], 09/26/2023 13:31:04 09/26/20 23 09/26/2023 urina lysis panel , auto Unknown Analyte 1.010 Not Available [facility] Surgery Schedule [address] [place], [address], 09/26/2023 13:31:04 09/26/20 23 09/26/2023 urina lysis panel , auto Unknown Analyte 1.003- 1.035 Not Available [facility] Schedule [address] [place], [address], 09/26/2023 13:31:04 09/26/20 23 09/26/2023 urina lysis panel , auto Unknown Analyte 6.0 Not Available [facility] Surgery Schedule [address] [place], [address], 09/26/2023 13:31:04 09/26/20 23 09/26/2023 urina lysis panel , auto Unknown Analyte 5.0-8. 0 Not Available [facility] Schedule [address] [place], [address], 09/26/2023 13:31:04 09/26/20 23 09/26/2023 urina lysis panel , auto Unknown Analyte Negati ve Not Available [facility] Surgery Schedule [address] [place] [address], [address], 09/26/2023 13:31:04 09/26/20 23 09/26/2023 urina lysis panel , auto Unknown Analyte Negati ve Not Available [facility] Schedule [address] [place] [address], [address], 09/26/2023 13:31:04 09/26/20 23 09/26/2023 urina lysis panel , auto Unknown Analyte Negati ve Not Available [facility] Schedule [address] [place] [address], [address], 09/26/2023 13:31:04 09/26/20 23 09/26/2023 urina lysis panel , auto Unknown Analyte Negati ve Not Available [facility] Schedule [address] [place] [address], [address], 09/26/2023 13:31:04 09/26/20 23 09/26/2023 urina lysis panel , auto Unknown Analyte Negati ve Not Available [facility] Schedule [address] [place] [address], [address], 09/26/2023 13:31:04 09/26/20 23 09/26/2023 urina lysis panel , auto Unknown Analyte Negati ve Not Available [facility] Schedule [address] [place] [address], [address], 09/26/2023 13:31:04 09/26/20 23 09/26/2023 urina lysis panel , auto Unknown Analyte Normal Not Available [facility] Surgery Schedule [address] [place] [address], [address], 09/26/2023 13:31:04 09/26/20 23 09/26/2023 urina lysis panel , auto Unknown Analyte Normal Not Available [facility] Surgery Schedule [address] [place], [address], 09/26/2023 13:31:04 09/26/20 23 09/26/2023 urina lysis panel , auto Unknown Analyte Negati ve Not Available [facility] Schedule [address] [place], [address], 09/26/2023 13:31:04 09/26/20 23 09/26/2023 urina lysis panel , auto Unknown Analyte Negati ve Not Available [facility] Schedule [address] [place], [address], 09/26/2023 13:31:04 09/26/20 23 09/26/2023 urina lysis panel , auto Unknown Analyte Normal Not Available [facility] Schedule [address] [place], [address], 09/26/2023 13:31:04 09/26/20 23 09/26/2023 urina lysis panel , auto Unknown Analyte Normal 1 mg/dl Not Available [facility] Schedule [address] [place], [address], 09/26/2023 13:31:04 09/26/20 23 09/26/2023 urina lysis panel , auto Unknown Analyte Negati ve Not Available [facility] Surgery Schedule [address] [place], [address], 09/26/2023 13:31:04 09/26/20 23 09/26/2023 urina lysis panel , auto Unknown Analyte Negati ve Not Available [facility] Surgery Schedule [address] [place], [address], 09/26/2023 13:31:04 09/26/20 23 09/26/2023 urina lysis panel , auto Unknown Analyte Negati ve Not Available [facility] Surgery Schedule [address] [place], [address], 09/26/2023 13:31:04 12/08/19 12/08/2023 COMPL ETE BLOOD COUNT white blood cells 6.7 10*3/ uL 3.8-10 .8 normal Not Available [facility] [address] [place] [address], [address], 12/08/2023 16:37:46 12/08/19 24 12/08/2023 COMPL ETE BLOOD COUNT red blood cells 4.12 10*6/ uL 3.80-5 .20 normal Not Available [facility] [address] [place] [address], [address], 12/08/2023 16:37:46 12/08/19 24 12/08/2023 COMPL ETE BLOOD COUNT hemoglobin 13.1 g/dL 12.0-1 6.0 normal Not Available [facility] [address] [place] [address], [address], 12/08/2023 16:37:46 12/08/19 24 12/08/2023 COMPL ETE BLOOD COUNT hematocrit 36.9 % 35.0-4 7.0 normal Not Available [facility] [address] [place] [address], [address], 12/08/2023 16:37:46 12/08/19 24 12/08/2023 COMPL ETE BLOOD COUNT MCV 89 fL 80-100 normal Not Available [facility] [address] [place] [address], [address], 12/08/2023 16:37:46 12/08/19 24 12/08/2023 COMPL ETE BLOOD COUNT MCH 32 pg 26-35 normal Not Available [facility] [address] [place] [address], [address], 12/08/2023 16:37:46 12/08/19 24 12/08/2023 COMPL ETE BLOOD COUNT MCHC 36 g/dL 32-36 normal Not Available [facility] [address] [place] [address], [address], 12/08/2023 16:37:46 12/08/19 24 12/08/2023 COMPL ETE BLOOD COUNT RDW 12.6 % 11.0-1 5.0 normal Not Available [facility] [address] [place] [address], [address], 12/08/2023 16:37:46 12/08/19 24 12/08/2023 COMPL ETE BLOOD COUNT MPV 9.1 fL 6.2-10 .5 normal Not Available [facility] [address] [place] [address], [address], 12/08/2023 16:37:46 12/08/19 24 12/08/2023 COMPL ETE BLOOD COUNT platelet count 199 10*3/ uL 150-40 0 normal Not Available [facility] [address] [place] [address], [address], 12/08/2023 16:37:46 12/08/19 24 12/08/2023 COMPL ETE BLOOD COUNT neutrophil,a bsolute 3.9 10*3/ uL 1.6-8. 4 normal Not Available [facility] [address] [place] [address], [address], 12/08/2023 16:37:46 12/08/19 24 12/08/2023 COMPL ETE BLOOD COUNT lymphocyte,a bsolute 2.1 10*3/ uL 0.4-5. 1 normal Not Available [facility] [address] [place] [address], [address], 12/08/2023 16:37:46 12/08/19 24 12/08/2023 COMPL ETE BLOOD COUNT monocyte,abs olute 0.4 10*3/ uL 0.0-1. 2 normal Not Available [facility] [address] [place] [address], [address], 12/08/2023 16:37:46 12/08/19 24 12/08/2023 COMPL ETE BLOOD COUNT eosinophil,a bsolute 0.2 10*3/ uL 0.0-0. 8 normal Not Available [facility] [address] [place] [address], [address], 12/08/2023 16:37:46 12/08/19 24 12/08/2023 COMPL ETE BLOOD COUNT basophil,abs olute 0.0 10*3/ uL 0.0-0. 3 normal Not Available [facility] [address] [place] [address], [address], 12/08/2023 16:37:46 12/08/19 24 12/08/2023 COMPL ETE BLOOD COUNT % neutrophils 59.0 % 42.0-7 8.0 normal Not Available [facility] [address] [place] [address], [address], 12/08/2023 16:37:46 12/08/19 24 12/08/2023 COMPL ETE BLOOD COUNT % lymphocytes 30.9 % 11.0-4 7.0 normal Not Available [facility] [address] [place] [address], [address], 12/08/2023 16:37:46 12/08/19 24 12/08/2023 COMPL ETE BLOOD COUNT % monocytes 6.0 % 0.0-11 .0 normal Not Available [facility] [address] [place] [address], [address], 12/08/2023 16:37:46 12/08/19 24 12/08/2023 COMPL ETE BLOOD COUNT % eosinophils 3.5 % 0.0-7. 0 normal Not Available [facility] [address] [place] [address], [address], 12/08/2023 16:37:46 12/08/19 24 12/08/2023 COMPL ETE BLOOD COUNT % basophils 0.6 % 0.0-3. 0 normal Not Available [facility] [address] [place] [address], [address], 12/08/2023 16:37:46 12/08/19 24 12/08/2023 COMPL ETE BLOOD COUNT nucleated red cells 0.1 % 0.0-0. 9 normal Not Available [facility] [address] [place] [address], [address], 12/08/2023 16:37:46 12/08/19 24 12/08/2023 COMPL ETE BLOOD COUNT nucleated RBCs, absolute 0.00 10*3/ uL not estab. normal Not Available [facility] [address] [place] [address], [address], 12/08/2023 16:37:46 12/08/19 24 12/08/2023 GLYCO HEMOG LOBIN A1C glyco HGB A1C 5.2 % 0.0-5. 6 normal Not Available [facility] [address] [place] [address], [address], 12/08/2023 16:51:48 12/08/19 24 12/08/2023 GLYCO HEMOG LOBIN A1C estimated avg. glucose 103 mg/dL _(jose enrique c) normal A1c value s betwe en 5.7% to 6.4% indic ate predi abete s. Resul ts 6.5% or great er is diagn ostic of diabe ene. Ameri can Diabe ene Assoc iatio n (diab etes. org) Not Available [facility] [address] [place] [address], [address], 12/08/2023 16:51:48 12/08/19 24 12/08/2023 T4,FR EE T4,free 1.06 NG/dL 0.93-1 .70 normal Not Available [facility] [place], [address], 12/08/2023 17:06:11 12/08/19 24 12/08/2023 TSH TSH 3.070 u[IU] /mL 0.270- 4.200 normal Not Available [facility] [place], [address], 12/08/2023 17:06:12 03/04/20 24 12/08/2023 T3 FREE T3 free 2.73 pg/mL 2.00-4 .40 normal Not Available [facility] [address] [place] [address], [address], 12/08/2023 17:06:14 12/08/19 24 12/08/2023 VITAM IN D 25-OH vitamin D 25-oh, total 31 NG/mL >=30 NG/mL normal Not Available [facility] [address] [place] [address], [address], 12/08/2023 17:11:19 12/08/19 24 12/08/2023 B12/F OLIC ACID PANEL folic acid 17.7 NG/mL 4.6-34 .8 normal Not Available [facility] [address] [place] [address], [address], 12/08/2023 17:11:21 12/08/19 24 12/08/2023 B12/F OLIC ACID PANEL vitamin B12 1044 pg/mL 232-12 45 normal Not Available [facility] [address] [place] [address], [address], 12/08/2023 17:11:21 12/08/19 24 12/08/2023 MAGNE SIUM magnesium 2.0 mg/dL 1.6-2. 6 normal Not Available [facility] [address] [place] [address], [address], 12/08/2023 17:11:51 12/08/19 24 12/08/2023 COMP. METAB OLIC PANEL glucose 108 mg/dL 74-100 high Not Available [facility] [address] [place] [address], [address], 12/08/2023 17:11:53 12/08/19 24 12/08/2023 COMP. METAB OLIC PANEL blood urea nitrogen 18 mg/dL 6-20 normal Not Available [facility] [address] [place] [address], [address], 12/08/2023 17:11:53 12/08/19 24 12/08/2023 COMP. METAB OLIC PANEL creatinine 0.68 mg/dL 0.50-0 .95 normal Not Available [facility] [address] [place] [address], [address], 12/08/2023 17:11:53 12/08/19 24 12/08/2023 COMP. METAB OLIC PANEL BUN/creatini ne ratio 26 (calc ) 10-20 high Not Available [facility] [address] [place] [address], [address], 12/08/2023 17:11:53 12/08/19 24 12/08/2023 COMP. METAB OLIC PANEL sodium 141 mmol/ L 136-14 5 normal Not Available [facility] [address] [place] [address], [address], 12/08/2023 17:11:53 12/08/19 24 12/08/2023 COMP. METAB OLIC PANEL potassium 3.6 mmol/ L 3.4-5. 0 normal Not Available [facility] [address] [place] [address], [address], 12/08/2023 17:11:53 12/08/19 24 12/08/2023 COMP. METAB OLIC PANEL chloride 105 mmol/ L 98-107 normal Not Available [facility] [address] [place] [address], [address], 12/08/2023 17:11:53 12/08/19 24 12/08/2023 COMP. METAB OLIC PANEL carbon dioxide 25 mmol/ L 22-31 normal Not Available [facility] [address] [place] [address], [address], 12/08/2023 17:11:53 12/08/19 24 12/08/2023 COMP. METAB OLIC PANEL anion gap 11 (calc ) 7-25 normal Not Available [facility] [address] [place] [address], [address], 12/08/2023 17:11:53 12/08/19 24 12/08/2023 COMP. METAB OLIC PANEL calcium 9.3 mg/dL 8.6-10 .2 normal Not Available [facility] [address] [place] [address], [address], 12/08/2023 17:11:53 12/08/19 24 12/08/2023 COMP. METAB OLIC PANEL total protein 6.7 g/dL 6.4-8. 3 normal Not Available [facility] [address] [place] [address], [address], 12/08/2023 17:11:53 12/08/19 24 12/08/2023 COMP. METAB OLIC PANEL albumin 4.3 g/dL 3.5-5. 2 normal Not Available [facility] [address] [place] [address], [address], 12/08/2023 17:11:53 12/08/19 24 12/08/2023 COMP. METAB OLIC PANEL globulin 2.4 1.5-4. 5 normal Not Available [facility] [address] [place] [address], [address], 12/08/2023 17:11:53 12/08/19 24 12/08/2023 COMP. METAB OLIC PANEL albumin/glob ulin ratio 1.8 (calc ) 1.1-2. 5 normal Not Available [facility] [address] [place] [address], [address], 12/08/2023 17:11:53 12/08/19 24 12/08/2023 COMP. METAB OLIC PANEL bilirubin, total 0.2 mg/dL 0.1-1. 2 normal Not Available [facility] [address] [place] [address], [address], 12/08/2023 17:11:53 12/08/19 24 12/08/2023 COMP. METAB OLIC PANEL alkaline phosphatase 86 U/L 30-121 normal Not Available [facility] [address] [place], [address], 12/08/2023 17:11:53 12/08/19 24 12/08/2023 COMP. METAB OLIC PANEL AST 12 U/L 0-32 normal Not Available [facility] [address] [place] [address], [address], 12/08/2023 17:11:53 12/08/19 24 12/08/2023 COMP. METAB OLIC PANEL ALT 11 U/L 0-33 normal Not Available [facility] [address] [place] [address], [address], 12/08/2023 17:11:53 12/08/19 24 12/08/2023 COMP. METAB OLIC PANEL GFR 104 >= 60 normal NOT E New calcu latio n for GFR (CKD- EPI 2020) is formu lated witho ut race adjus tment facto rs at the recom menda tion of the [employer] [facility] and [facility]mpineda [facility] ty of Nephr ology . This calcu latio n has not been valid ated in pregn ant women . For pedia beba patie nts refer to https ://andriy langley.jenny buenrostro/pr papoess antal s/KDO QI/gf r_cal culat orPed Not Available [facility] [address] [place] [address], [address], 12/08/2023 17:11:53 12/08/19 24 12/08/2023 IRON PANEL -TOTA L AND TIBC iron 67 ug/dL 37-145 normal Not Available [facility] [address] [place] [address], [address], 12/08/2023 17:11:54 12/08/19 24 12/08/2023 IRON PANEL -TOTA L AND TIBC total iron binding cap. 310 ug/dL _(jose enrique c) 250-45 0 normal Not Available [facility] [address] [place] [address], [address], 12/08/2023 17:11:54 12/08/19 24 12/08/2023 IRON PANEL -TOTA L AND TIBC unsat.iron binding cap. 243 ug/dL 112-34 7 normal Not Available [facility] [address] [place] [address], [address], 12/08/2023 17:11:54 12/08/19 24 12/08/2023 IRON PANEL -TOTA L AND TIBC % saturation 22 %_(ca lc) 15-50 normal Not Available [facility] [address] [place] [address], [address], 12/08/2023 17:11:54 12/08/19 24 12/08/2023 LIPID PROFI LE HDL cholesterol 76 mg/dL 50-242 normal Not Available [facility] [address] [place] [address], [phone], 12/08/2023 17:11:55 12/08/19 24 12/08/2023 LIPID PROFI LE triglyceride s 166 mg/dL 0-149 high TRIGL YCERI DE RANGE S DIMAS L: < 150 BORDE RLINE HIGH: 150 - 199 HIGH: 200 - 499 VERY HIGH: > OR = 500 Not Available [facility] [address] [place] [address], [phone], 12/08/2023 17:11:55 12/08/19 24 12/08/2023 LIPID PROFI LE cholesterol 230 mg/dL 0-199 high YUNI STERO L (TOTA L) RANGE S HOLLIS ABLE: < 200 BORDE RLINE : 200 - 239 HIGHE R RISK: > 239 Not Available [facility] [address] [place] [address], [phone], 12/08/2023 17:11:55 12/08/19 24 12/08/2023 LIPID PROFI LE LDL cholesterol 121 mg/dL _(jose enrique c) 0-99 high LDL YUNI STERO L RANGE S OPTIM AL: < 100 NEAR/ ABOVE OPTIM AL: 100 - 129 BORDE RLINE HIGH: 130 - 159 HIGH: 160 - 189 VERY HIGH: > OR = 190 Not Available [facility] [address] [place], [address], 12/08/2023 17:11:55 10/27/19 25 10/29/2024 HPV, HIGH RISK high risk HPV Negati ve negati ve normal This assay detec ts E6/E7 viral messe nger RNA (mRNA ) from 14 high- risk HPV types (16,1 8,31, 33,35 ,39,4 5,51, 52,56 , 58,59 ,66,6 8) witho ut diffe renti ation . Sensi tivit y may be affec hina by speci men colle ction metho ds, stage of infec tion, and the prese nce of inter ferin g subst ances . Resul ts shoul d be inter prete d in conju nctio n with other avail able labor atory and clini jose enrique data. A negat latrice Aptim a HPV assay resul t does not exclu de the possi bilit y of cytol ogic abnor malit ies or futur e or under lying CIN2, CIN3, or cance r. This test is inten ded for medic al purpo ses and has not been evalu ated in cases of suspe cted abuse . This assay is not inten ded for use as a scree moses devic e for women under age 30 with dimas l cervi jose enrique cytol ogy. The Aptim a HPV assay is not inten ded to subst itute for regul ar cervi jose enrique cytol ogy. Test metho dolog y is Nucle ic Acid Ampli ficat ion (NAAT ) Not Available [facility] [address] [place], [address], 10/29/2024 16:37:35 10/27/19 25 10/27/2024 PAP SMEAR Pap smear SEE BELOW normal Depar tment of Patho logy GYNEC OLOGI JOSE ENRIQUE CYTOL OGY REPOR T NAME: JANI COLINDRES PATHO LOGY NO.: [id number] Copy to: [facility] E OF SPECI MEN: VAGIN AL-TH IN PREP RELEV ANT HISTO RY: No LMP given . Comme nt: HPV CO-TE STING SPECI MEN ADEQU ACY SATIS FACTO RY FOR EVALU ATION . VAGIN AL SMEAR GENER AL CATEG ORIZA TION NEGAT LATRICE FOR INTRA EPITH ELIAL LESIO N OR MALIG MELVIN RELAT ED LABOR ATORY RESUL TS Test Name Resul t Colle cted D and T HIGH RISK HPV Negat latrice 2024 16:27 KATHR YN LILLY S, CT (ASCP ) Venessa d Out Date: 11/04 16:51 Cervi jose enrique/v agina l cytol ogy is a scree moses test with a recog nized false negat latrice rate. New techn ologi es may decre ase, but will not elimi dagoberto false negat latrice resul ts. Regul ar cytol ogy scree moses is recom jay d to minim ize false negat latrice resul ts. The ThinP rep(R ) Imagi ng syste m is used to valentina t in prima ry cervi jose enrique cance r scree moses of ThinP rep(R ) Pap test slide s. Page 1 of 1 Not Available [facility] [address] [place] [address], [place], [phone], 11/04/2024 16:51:32 06/25/20 24 06/23/2024 MAMMO , scree moses, tomos ynthe sis, bilat eral, w/ CAD [facility] [address] [place] [address] Patiariadna t Name: RAIZA Holden LUZMARIA Cooper Yair frank : [id number] Age: 54 years Patien t 0 Orderi ng Provid er: CYNTHIA SA S BEITIN G EXAM DATE: 2023 EXAM: MG SCREEN ING FIONA MAMMOG BEBO INDICA TION: Routin e screen ing. No person al or family histor y of breast cancer . Lifeti me risk of breast cancer 7%. Histor y of matern al grandm other with breast cancer , age 75. PROCED URE: Multis lice imagin g of both breast s was perfor med in standa rd projec tions using Hologi c Seleni a Dimens ions tomosy nthesi s equipm ent (3D mammog krystina) . 2D images were create d from the 3D datase t using C-View softwa re. The study was read with the assist ance of Comput er Aided Detect ion (CAD) softwa re. COMPAR RIGOBERTO: This was compar ed with previo us mammog rhett dated 02/07/20 22, 05/14/20 21 FINDIN GS: There are scatte red areas of fibrog landul ar densit y. No new Mass, area of dwight ectura l distor tion or suspic ious calcif icatio n. IMPRES FLORI: BI-RAD S catego ry 1, Negati ve. There is no eviden ce of malign rodrick. Screen ing mammog rhett are recomm ended in one year. Result s were mailed or given to the patien t. Interp reted By: Xuan contreras MD [facility] onical ly Signed By: Xuan contreras MD on 024 11:59 AM [email or web address] [facility] [address], [phone], 07/09/2024 07:48:13 Result Notes Documentation Provider Name and Address Organization Details Recorded Time Mammo, Screening, Tomosynthesis, Bilateral, W/ Cad : [address] [address] Patient Name: RAIZA ROJO Patient : 1970 Age: 54 years Patient Ordering Provider: KENROY PALACIOS EXAM DATE: 06/23/2024 EXAM: MG SCREENING FIONA MAMMOGRAM INDICATION: Routine screening. No personal or family history of breast cancer. Lifetime risk of breast cancer 7%. History of maternal grandmother with breast cancer, age 75. PROCEDURE: Multislice imaging of both breasts was performed in standard projections using [employer] tomosynthesis equipment (3D mammography). 2D images were created from the 3D dataset using C-View software. The study was read with the assistance of Computer Aided Detection (CAD) software. COMPARISON: This was compared with previous mammograms dated 02/06/2022, 05/14/2021 FINDINGS: There are scattered areas of fibroglandular density. No new Mass, area of architectural distortion or suspicious calcification. IMPRESSION: BI-RADS category 1, Negative. There is no evidence of malignancy. Screening mammograms are recommended in one year. Results were mailed or given to the patient. Interpreted By: Xuan Edouard MD Geena Vazquez [facility] 07/09/2024 07:48:13 Problems Name Problem SNOMED Code Status Onset Date Resolution Date Notes Provider Name and Address Organization Details Recorded Time Lichen sclerosus 848097422 Active 025 M[address]LL [facility]ED [facility] [address] [place] [address], [phone] [place] [address] 15:43:19 Problem Notes Documentation Provider Name and Address Organization Details Recorded Time Urologist Consult Note : [facility] [address], [facility] [id number] (id #[id number], : 1970) [facility] [address] [place] [address] Date: 09/16/2023RE: Raiza Rojo, : 1970, PT ID #[id number] Palacios MD, I would like to thank you for referring Raiza Rojo to our practice for consultation and evaluation. I have enclosed a copy of the office evaluation for your records. Sincerely, Electronically Signed by: DEANNE JUSTIN [facility] Reason/Date UTI 09/15/2023 - 10:30AM - [address] History of Present IllnessRaiza is a 53 yo new female who returns after a 4 1/2 year absence today due to uti. For several years she has had frequent UTIs. For several years she took trimethoprim HS, and then Macrobid HS for suppression. She recently was increased from 50 mg to 100 mg. SHe has frequency x 20/day. She has nocturia. She has no other complaints today. denies hematuria and dysuria.Review of Systems Patient reportsurinary incontinence, increased urinary frequency, and urinary urgency. Physical ExamConstitutional:General Appearance: healthy-appearing and well-nourished. Level of Distress: no acute distress. Lungs:Auscultation:normal rate and rhythm, unlabored. Cardiovascular:Heart Auscultation:no edema, normal pulses. Abdomen:Inspection and Palpation: no tenderness, masses, or CVA tenderness and soft. Female Genitalia:Vulva: no lesions. Bladder/Urethra: normal meatus and bladder non distended. Vagina: no cystocele or rectocele. Cervix: absent;normal. Uterus: absent;normal. Adnexae/Parametria: absent and no adnexal tenderness;or mass. Skin:Inspection and palpation: no rash or lesions.Procedure DocumentationNone recordedAssessment/Plan1. Recurrent urinary tract infection-now needs rfzrrwpiyxC45.0: Urinary tract infection, site not specified URINALYSIS PANEL, AUTO 2. Increased frequency of ivvacxlrjJ44.0: Frequency of micturition URINALYSIS PANEL, AUTO UA Auto/Manual RESULT REFERENCE RANGE SOURCE Clean Catch COLOR Yellow APPEARANCE Clear SPECIFIC GRAVITY 1.015 pH 5.0 LEUKOCYTE ESTERACE 25 Rivka/ul Trace NITRITE Negative PROTEIN Negative GLUCOSE Normal KETONES Negative UROBILINOGEN Normal BILIRUBIN Negative BLOOD Trace Patient Instructionsdo 3 day voiding diary Return to Office DEANNE JUSTIN MD for ASC-CYSTO at SURGERY SCHEDULE on 09/26/2023 at 02:15 PM ALICIA ALARCON APRN for RECHECK at ENDOCRINOLOGY SB on 12/08/2023 at 03:15 PM to see ALICIA ALARCON APRN for RECHECK at ENDOCRINOLOGY SB on or around 12/10/2023 KENROY PALACIOS MD [address] [place] [address], [phone], [facility] 09/17/2023 13:49:12 Procedures Surgical History Date Name Laterality Status Provider Name and Address Organization Details Recorded Time 10/27/19 25 Date of Last Pap Smear completed Bassam Velez [facility] 11/17/2024 08:18:38 06/23/20 24 Most Recent Mammogram completed Kala Chaney [facility] 10/27/2024 15:14:25 09/26/20 23 Cystoscopy [place] [address] [place] [address], [phone], [facility] 09/26/2023 14:06:00 05/13/20 23 Post Void Residual; Ultrasound completed Maryam Christianson [facility] 05/13/2023 10:33:10 Tonsillectomy completed Matilde Nuñez [facility] 05/13/2017 15:38:04 Hysterectomy completed DEANNE JUSTIN MD [address] [place] [address], [phone], [facility] 05/17/2017 08:45:54 Other completed DEANNE JUSTIN MD [address] [place] [address], [address] [place] [address], [facility] 09/16/2023 19:54:51 Other completed DEANNE JUSTIN MD [address] [place] [address], [address] [place] [address], [facility] 05/17/2017 08:45:25 procedure on urinary bladder completed Marcy Rowley [facility] 09/15/2023 10:47:51 myringotomy and insertion of tympanic ventilation tube completed DEANNE JUSTIN MD [address] [place] [address], [address] [place] [address], [facility] 09/16/2023 19:54:41 Imaging Results None recorded. Procedure Notes None recorded. Medical Equipment None Reported. Allergies Allergen ID Allergen Name Allergen Category Reaction Reaction Severity Criticality Documentation Date Start Date Code Code System Note Provider Name and Address Organization Details Recorded Time 997841 Substance with sulfonami de structure and antibacte rial mechanism of action (substanc e) medicatio n Not available Not available Not available 05/13/2017 33714 8003 [facility]ED [facility] 15:33:32 [id number] Protonix medicatio n Not available Not available Not available 05/13/2017 80317 4 RxNorm [facility] 15:34:36 [id number] procaine hydrochlo ride medicatio n Not available Not available Not available 10/27/2024 34994 8 RxNorm Kala Kathryn Chaney [facility] 15:11:04 Medications Name Sig Start Date Stop Date Status Note LastModified by Organization Details LastModified Time amoxicill in 500 mg capsule TAKE 1 CAPSULE BY MOUTH THREE TIMES DAILY 10/27 completed complete d Not Available Not Available Not Available promethaz ine-DM 6.25 mg-15 mg/5 mL oral syrup 03/02 completed Not Available Not Available Not Available neomycin- polymyxin -hydrocor t 3.5 mg/mL-10, 000 unit/mL-1 % ear solution INSTILL 4 DROPS INTO AFFECTED EAR(S) TWICE DAILY FOR 10 DAY 03/27 completed Not Available Not Available Not Available prednison e 10 mg tablet 05/13 completed Not Available Not Available Not Available nitrofura ntoin macrocrys daniel 50 mg capsule TAKE 1 CAPSULE BY MOUTH ONCE DAILY AT BEDTIME FOR UTI PREVENTI ON active Not Available Not Available No t Available cefuroxim e axetil 250 mg tablet 05/13 completed Not Available Not Available Not Available clindamyc in HCl 300 mg capsule 01/13 completed Not Available Not Available Not Available Vitamin C 500 mg tablet TAKE 1 TABLET BY MOUTH THREE TIMES DAILY 05/13 completed Not Available Not Available Not Available azithromy benitez 250 mg tablet 03/02 completed Not Available Not Available Not Available fluconazo le 150 mg tablet 03/27 completed Not Available Not Available Not Available cephalexi n 250 mg capsule TAKE 1 CAPSULE BY MOUTH 4 TIMES DAILY 05/13 completed Not Available Not Available Not Available Synthroid 150 mcg tablet 09/02 completed Not Available Not Available Not Available Claritin 10 mg tablet Daily 05/13 completed Frequenc y: daily;Me dication Descript ion: loratadi ne; Dosage:1 ; Route:or al; refills: 0; Quantity :30 tablet Not Available Not Available Not Available Synthroid 125 mcg tablet 12/16 completed Not Available Not Available Not Available prednison e 20 mg tablet 09/02 completed Not Available Not Available Not Available Synthroid 100 mcg tablet once daily 07/16 completed Not Available Not Available Not Available prednison e 5 mg tablet 05/13 completed Not Available Not Available Not Available Pyridium 200 mg tablet Take 1 tablet 3 times a day by oral route for 10 days. 03/27 completed Not Available Not Available Not Available clobetaso l 0.05 % topical cream APPLY CREAM TOPICALL Y DAILY active Not Available Not Available No t Available penicilli n V potassium 500 mg tablet 03/02 completed Not Available Not Available Not Available potassium chloride ER 10 mEq tablet,ex tended release 09/02 completed Not Available Not Available Not Available acetamino phen 300 mg-codein e 30 mg tablet TAKE 1 TABLET BY MOUTH EVERY 6 HOURS 10/27 completed Not Available Not Available Not Available ciproflox acin 250 mg tablet 12/07 completed Not Available Not Available Not Available trimethop rim 100 mg tablet TAKE 1 TABLET BY MOUTH ONCE DAILY 03/27 completed Not Available Not Available Not Available ciproflox acin 500 mg tablet Take 1 tablet every 12 hours by oral route for 7 days. 03/02 completed Not Available Not Available Not Available omeprazol e 40 mg capsule,d elayed release 09/02 completed Not Available Not Available Not Available liothyron ine 5 mcg tablet TAKE 1 TABLET BY MOUTH ONCE DAILY active Not Available Not Available No t Available ketorolac 10 mg tablet 05/13 completed Not Available Not Available Not Available prednison e 10 mg tablets in a dose pack 03/27 completed Not Available Not Available Not Available meloxicam 7.5 mg tablet 05/13 completed Not Available Not Available Not Available methenami ne hippurate 1 gram tablet TAKE 1 TABLET BY MOUTH TWICE DAILY 05/13 completed Not Available Not Available Not Available amoxicill in 875 mg tablet 01/11 completed Not Available Not Available Not Available famotidin e 20 mg tablet 05/13 completed Not Available Not Available Not Available lorazepam 0.5 mg tablet TAKE 1 TABLET BY MOUTH THREE TIMES DAILY NEEDED FOR ANXIETY 09/15 completed Not Available Not Available Not Available prednison e 1 mg tablet Currentl y takes 6 mg daily ( 7) 12/16 completed Not Available Not Available Not Available cephalexi n 500 mg capsule 01/11 completed Not Available Not Available Not Available erythromy benitez 5 mg/gram (0.5 %) eye ointment 03/02 completed Not Available Not Available Not Available cyanocoba annika (vit B-12) 1,000 mcg/mL injection solution 12/09 completed Not Available Not Available Not Available Synthroid 88 mcg tablet TAKE 1 TABLET BY MOUTH ONCE DAILY active Not Available Not Available No t Available Synthroid 75 mcg tablet TAKE 1 TABLET BY MOUTH ONCE DAILY IN THE MORNING ON AN EMPTY STOMACH 12/07 completed Not Available Not Available Not Available furosemid e 20 mg tablet 05/13 completed Not Available Not Available Not Available Synthroid 112 mcg tablet Daily 05/13 completed Not Available Not Available Not Available levofloxa benitez 500 mg tablet TAKE 1 TABLET BY MOUTH ONCE DAILY FOR 5 DAYS 12/09 completed Not Available Not Available Not Available estradiol 0.01% (0.1 mg/gram) vaginal cream INSERT 1 GRAM VAGINALL Y THREE NIGHTS A WEEK active Not Available Not Available No t Available levofloxa benitez 750 mg tablet TAKE 1 TABLET BY MOUTH ONCE DAILY FOR 5 DAYS 09/15 completed Not Available Not Available Not Available methylpre dnisolone 4 mg tablets in a dose pack 01/11 completed Not Available Not Available Not Available colchicin e 0.6 mg tablet 12/16 completed Not Available Not Available Not Available cefdinir 300 mg capsule TAKE 1 CAPSULE BY MOUTH TWICE DAILY 03/27 completed Not Available Not Available Not Available fluticaso ne propionat e 50 mcg/actua tion nasal spray,marleni pension USE 1 SPRAY(S) IN EACH NOSTRIL ONCE DAILY active Not Available Not Available No t Available amoxicill in 875 mg-potass ium clavulana te 125 mg tablet 09/02 completed Not Available Not Available Not Available neomycin- polymyxin -hydrocor t 3.5 mg-10,000 unit/mL-1 % ear drops,marleni p 03/27 completed Not Available Not Available Not Available Ciprodex 0.3 %-0.1 % ear drops,marleni pension 09/02 completed Not Available Not Available Not Available Prilosec OTC 20 mg tablet,de layed release Take by oral route. 09/02 completed Not Available Not Available Not Available bupropion HCl XL 150 mg 24 hr tablet, extended release TAKE 1 TABLET BY MOUTH EVERY 24 HOURS 03/27 completed never started taking medicati on Not Available Not Available Not Available nitrofura ntoin monohydra te/macroc rystals 100 mg capsule TAKE 1 CAPSULE BY MOUTH ONCE DAILY AT BEDTIME - START AFTER COMPLETI NG 10 DAY COURSE OF MACROBID TWICE DAILY 12/07 completed Not Available Not Available Not Available chlorhexi dine gluconate 0.12 % mouthwash SWISH 1/2 OUNCE BY MOUTH FOR 30 SECONDS THEN SPIT. USE TWICE DAILY 10/27 completed Not Available Not Available Not Available calcium Daily 03/27 completed Frequenc y: daily;Me dication Descript ion: calcium carbonat e; Dosage:a s directed ; Route:or al; refills: 0 Not Available Not Available Not Available cranberry Daily 05/13 completed Frequenc y: daily;Me dication Descript ion: cranberr y; Dosage:a s directed ; Route:or al; refills: 0 Not Available Not Available Not Available Nexium 12/16 completed Not Available Not Available Not Available ProAir HFA 90 mcg/actua tion aerosol inhaler 12/16 completed Not Available Not Available Not Available Suprep Bowel Prep Kit 17.5 gram-3.13 gram-1.6 gram oral solution TAKE DIRECTED 03/27 completed Not Available Not Available Not Available Duexis 800 mg-26.6 mg tablet 05/13 completed Not Available Not Available Not Available Myrbetriq 25 mg tablet,ex tended release Take 1 tablet every day by oral route. 07/14 completed Not Available Not Available Not Available Multi Vitamin active Not Available Not Available Not Available Belviq 10 mg tablet TAKE 1 TABLET BY MOUTH TWICE DAILY 10/27 completed did not take Not Available Not Available Not Available Contrave 8 mg-90 mg tablet,ex tended release 03/04 completed Not Available Not Available Not Available Fluarix Quad (PF) 60 mcg (15 mcg x 4)/0.5 mL IM syringe 07/14 completed Not Available Not Available Not Available Fluzone Quad (PF) 60 mcg (15 mcg x 4)/0.5 mL IM syringe 01/11 completed Not Available Not Available Not Available Fluzone Quad 60 mcg (15 mcg x 4)/0.5 mL intramusc ular susp. PHARMACI ST ADMINIST ERED IMMUNIZA TION ADMINIST ERED AT TIME OF DISPENSI NG 12/09 completed Not Available Not Available Not Available Vitals Date Recorded Body height Body mass index (BMI) Body weight Systolic And Diastolic Provider Name and Address Organization Details Last Updated DateTime 10/27/2024 162.56 cm 33.5 kg/m2 13090.51 g 122/70 mm[Hg] Kala Chaney [facility] 10/27/2024 15:18:17 Date Recorded Body height Body mass index (BMI) Body weight Heart rate Systolic And Diastolic Provider Name and Address Organization Details Last Updated DateTime 12/06/2024 162.56 cm 33.3 kg/m2 54775.92 g 78 /min 120/88 mm[Hg] Yajaira [facility] 12/06/2024 15:32:22 Date Recorded Body height Body mass index (BMI) Body weight Heart rate Systolic And Diastolic Provider Name and Address Organization Details Last Updated DateTime 12/08/2023 162.56 cm 31.9 kg/m2 04158.18 g 85 /min 124/86 mm[Hg] Yajaira [facility] 12/08/2023 15:03:38 Date Recorded Body height Body mass index (BMI) Body weight Provider Name and Address Organization Details Last Updated DateTime 09/15/2023 162.56 cm 30.6 kg/m2 86477.44 g Marcy Rowley [facility] 09/15/2023 10:42:51 Social History Question Answer Notes LastModified by Organizat ion Details LastModified Time Tobacco Smoking Status [facility] 05/13/2017 15:37:52 Marital Status Remarried 07/2023 Information not available 09/16/2023 What Was The Date Of Your Most Recent Tobacco Screening? 03/27/2022 [email or web address] Information not available 03/27/2022 What Is Your Relationship Status? [email or web address] Information not available 09/15/2023 How Much Tobacco Do You Smoke? No Information not available 05/13/2017 Has Tobacco Cessation Counseling Been Provided? No [email or web address] Information not available 09/15/2023 Sex: Female Functional Status Question Answer Note LastModified by Organizat ion Details LastModified Time Do you use any illicit or recreational drugs? No [email or web address] Information not available 09/15/2023 Do you or have you ever used any other forms of tobacco or nicotine? No [email or web address] Information not available 09/15/2023 What is your level of alcohol consumption? None Information not available 05/13/2017 What is your occupation? Nurse Information not available 05/13/2017 Mental Status None recorded. Family History Relationship Description Onset Age of this Age Resolved Age Notes LastModified by Organization Details LastModified Time Mother Diabetes mellitus Not available 2016 15:36:53 Maternal Grandmother Diabetes mellitus Not available 2016 15:36:53 Maternal Grandmother Family history of breast cancer Not available 2016 15:37:10 Maternal Grandmother Primary malignant neoplasm of skin of breast Not available 2016 15:37:31 Paternal Grandmother Malignant tumor of colon [email or web address] Not available 10/07 15:44:10 Medical History Condition Response Allergies/Hayfever Y Other N Colon Cancer N Breast Cancer N Heart Arrhythmia Y Emphysema N Thyroid Problems Y COPD N Depression N Anemia N Immune System Disorder N Anesthesia Complications N Heart Attack ([place]) N Deep Vein Thrombosis N Diabetes N Ovarian Cancer N Bleeding Disorder N Arthritis N Hyperlipidemia Y Acid Reflux (GERD) Y Cancer N Varicosities N Stroke N Asthma N Sleep Apnea N High Cholesterol N Thyroid Disorder Y Hepatitis N Liver Disease N Heart Disease Rheumatoid Arthritis N Hypertension N Kidney Disease N Gynecological History Statement/Question Response Abnormal Pap Y Date of Last Mammogram Sexually Active? Y Date of Last Pap Smear 10/27/2024 Age at Menarche 13 Current Control Method Hysterectom y Most Recent Mammogram 06/23/2024 Colonoscopy Obstetrics History GPAL:G 3 P 3 0 0 0 Type Value Full Term 3 Total 3 Past Encounters Encounter ID Performer Location Encounter Start Date Encounter Closed Date Diagnosis/Indication Diagnosis SNOMED-CT Code Diagnosis ICD10 Code Diagnosis Note [id number] DEANNE JUSTIN MD [facility]OLOG[facility] [address] [place] [address] 05/13/2017 14:52:11 05/18/2017 20:31:22 Recurrent urinary tract infection [id number] N39.0 [id number] DEANNE JUSTIN MD UROLOGY [facility] [address] [place] [address] 2 06/17/2017 15:23:09 06/20/2017 15:50:15 Acute urinary tract infection [id number] N39.0 [id number] DEANNE JUSTIN MD UROLOGY [facility] [address] [place] [address] 2 06/26/2017 09:01:29 06/27/2017 13:04:50 Recurrent urinary tract infection [id number] N39.0 [id number] DEANNE JUSTIN MD UROLOGY [facility] [address] [place] [address] 2 09/02/2017 08:39:17 09/04/2017 12:44:33 Recurrent urinary tract infection [id number] N39.0 Body mass index 30+ - obesity 078657785 Z68.34 [id number] DEANNE JUSTIN MD UROLOGY [facility] [address] [place] [address] 2 11/13/2017 12:35:17 11/14/2017 08:33:28 History of urinary tract infection [id number] 107 Z87.144 [id number] DEANNE JUSTIN MD UROLOGY [facility] [address] [place] [address] 2 12/16/2017 09:40:50 12/17/2017 08:53:27 Recurrent urinary tract infection [id number] N39.0 [id number] DEANNE JUSTIN MD UROLOGY [facility] [address] [place] [place] [address] 2 01/05/2018 11:02:21 01/05/2018 13:29:45 Acute urinary tract infection [id number] N39.0 [id number] DEANNE JUSTIN MD UROLOGY [facility] [address] [place] [address] 2 01/13/2018 08:46:41 01/14/2018 08:55:10 Recurrent urinary tract infection 449717751 N39.0 change her suppressiv e agent. [id number] THAIS MORA MD ENDOCRINO [facility] [address] [place] [id number] 02/13/2018 09:44:37 02/13/2018 10:28:25 Hypothyroidism 26572748 E03.9 The office today we had a discussion about hypothyroi dism pathophysi ology, manifestat ions and management plan. I would like to proceed with thyroid function tests and a trial of combined thyroid replacemen t therapy. Patient verbalized understand ing and agreed with the above mentioned plan of care. Obesity 051493622 E66.9 We had a discussion about obesity pathophysi ology i.e. calorie excess. I recommende d to proceed with 6-8 weeks of behavior lifestyle changes and consider pharmacolo gic therapy as appropriat e Visit. Fibromyalgia 069536459 M 79.7 Referral to rheumatolo remberto Menard for further evaluation . [id number] DEANNE JUSTIN MD UROLOGY [facility] [address] [place] [address] 2 02/13/2018 11:06:22 02/13/2018 13:41:30 Recurrent urinary tract infection [id number] N39.0 change her suppressiv e agent. [id number] DEANNE JUSTIN MD UROLOGY [facility] [address] [place] [address] 2 03/12/2018 16:11:33 03/13/2018 09:48:48 Spasm of urinary bladder [id number] N32.89 [id number] JOESPH [place] [address] [place] [address] 1 04/15/2018 08:00:18 04/15/2018 10:02:46 Pain of multiple joints 11932850 M25.50 Pt with recent acute worsening in pain when she stopped taking the steroid and colchicine associated with treament of pericardit is. Concern for inflammato ry pericardit is may be associated with underlying auto immune disorder Clinically she appears very good today, with positive myalgias in consistent fibromyalg ia locations and no features of synovitis, dactylitis or bony abnormalit y. At this point, we will get CARSON to rule out further need for testing of collagen vascular disorders. will get Rheumatoid factor and antiCCP to eval for RA, along with inflammato ry markers. I will see her back in 2-3 weeks to review the findings of the lab results. She does not wish medication daily in treatment of fibromyalg ia, continues regular activity and non pharmacolo gic modalities are encouraged including increased hydration, low sugar/carb ohydrate diet, therapy/co gnitive behavioral therapy and regular low impact exercise such as walking, yoga, water aerobics etc. Pericarditis [id number] I31 .9 admitted [facility] 04/18/17- ultimately evaluated at [facility] and completed 9 months of steroid plus colchicine . No recurrence of acute symptoms but remains somewhat sensation of difficulty getting a deep breath. Currently followed by Dr Sauceda. Dyspnea [id number] R06.00 Solitary n odule of lung 944166423 R91.1 CT found in hospital discharge summary requested noting small pericardia l effusion w/o evidence of PNA or Pleural Effusion. Also identified a 6mm subpleural RLL lung nodule non calcified. Also calcific LLL granuloma. . [id number] THAIS MORA MD ENDOCRINO [facility] [address] [place] [address] 04/15/2018 09:16:54 04/15/2018 10:59:11 Hypothyroidism 26215286 E03.9 Significan t clinical improvemen t i.e. weight loss and more energy with combinatio n therapy Continue current liothyroni ne 5 g every a.m. and 5 g every bedtime Continue Synthroid 100 g every a.m. Repeat TSH, free T4 and free T3 before next visit after 3 months Obesity 838907295 E66.9 We had a discussion about obesity pathophysi ology i.e. calorie excess. 9 pounds weight loss [ Down to 202 From 211] I recommende d to Continue 3 months of behavior lifestyle changes and consider pharmacolo gic therapy as appropriat e next Visit. Patient verbalized understand ing and agreed with the above mentioned plan of care. [id number] DEANNE JUSTIN MD UROLOGY [facility] [address] [place] [address] 05/08/2018 10:07:34 05/10/2018 17:47:02 Recurrent urinary tract infection 366715596 N39.0 Atrophic vaginitis 88533 000 N95.2 [id number] VEE ORTIZ MD PULMONARY [address] [facility], [address] [place] [address] 05/08/2018 12:11:48 05/12/2018 15:36:15 Solitary nodule of lung 721839681 R91.1 Likely benign granuloma related to [place] farm. Current recommenda tions are repeat CT scan in 6-12 months. Since it has been roughly one year since her original CT scan we will get imaging now. I will call her with the results. If nodule is stable, repeat scan would be in 1 year's time. [id number] THAIS MORA MD ENDOCRINO [facility] [address] [place] [address] 1 07/16/2018 08:45:35 07/16/2018 11:56:34 Hypothyroidism 59657470 E03.9 Significan t clinical improvemen t i.e. weight loss and more energy with combinatio n therapy TSH of 0.023 in the context of normal free T4 and free T3 Continue current liothyroni ne 5 g every a.m. and 5 g every bedtime Decrease Synthroid 88 g every a.m. Repeat TSH, free T4 and free T3 before next visit after 6 weeks [id number] DEANNE JUSTIN MD UROLOGY [facility] [address] [facility] [place] [address] 07/28/2018 09:12:46 08/08/2018 10:14:03 Dysuria 93324793 R30.0 [id number] THAIS MORA MD ENDOCRINO [facility] [address] [place] [id number] 03/02/2019 08:32:17 03/02/2019 10:06:34 Hypothyroidism 36310807 E03.9 Continue current liothyroni ne 5 g every a.m. and 5 g every bedtime Continue Synthroid 88 g every a.m. Repeat TSH, free T4 and free T3 Further adjustment as appropriat e to keep levels within normal range Vitamin B1 2 deficiency (non anemic) 09681432 E53.8 Currently on therapy Vitamin B12 and folic acid levels Vitamin D deficiency 347 29021 E55.9 Check 25 hydroxy vitamin D level Obesity 860867185 E66.9 We had a discussion about obesity pathophysi ology i.e. calorie excess. Current weight of 191 and a BMI of 32.8 Last office visit I recommend 3 months of behavior lifestyle changes and consider pharmacolo gic therapy as appropriat e next Visit. Contrave 80 mg 90 mg 1 tablet every morning for one week, 1 tablet twice daily for 1 week, 2 tablets every a.m. and 1 tablets every night for one week and 2 tablets twice daily thereafter . Benefits and side effects discussed with patient Provided with educationa l materials about low-calori e diet i.e. 1200-calor ie meal plan Provided with educationa l materials about Contrave therapy benefits and side effects Patient verbalized understand ing and agreed with the above mentioned plan of care. [id number] THAIS MORA MD ENDOCRINO [facility] [address] [place] [address] 07/12/2019 14:33:50 07/12/2019 15:19:03 Hypothyroidism 33508729 E03.9 Continue current liothyroni ne 5 g every a.m. and 5 g every bedtime Continue Synthroid 75 g every a.m. Repeat TSH, free T4 and free T3 [ Results are pending] Further adjustment as appropriat e to keep levels within normal range Obesity 493678415 E66.9 We had a discussion about obesity pathophysi ology i.e. calorie excess. Current weight of 188 pounds from 191 and a BMI of 32.3 from 32.8 Last office visit I recommend 3 months of behavior lifestyle changes and Prescribed Belviq which she did not take concerned about side effects i.e. pericardit is Recounsele d about the importance of behavioral lifestyle changes. [id number] CRISTIN KEENAN MD UROLOGY [facility] [address] [place] [address] 07/14/2019 14:29:52 07/16/2019 13:27:39 Recurrent urinary tract infection 324291578 N39.0 Pt with recent recurrence on prophylact ic trimethopr im. She is doing cranberry tablets and pushing fluids. 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 Will try Detrol 4 mg [id number] THAIS MORA MD [facility]CRINO [facility] [address] [place] [address] 01/12/2020 15:00:22 01/12/2020 15:40:59 Hypothyroidism 04320352 E03.9 Continue current liothyroni ne 5 g every a.m. and 5 g every bedtime Continue Synthroid 75 g every a.m. Repeat TSH, free T4 and free T3 [ Results are pending] Further adjustment as appropriat e to keep levels within normal range [id number] THAIS MORA MD ENDOCRINO [facility] [address] [address] 06/19/2020 13:39:07 06/20/2020 12:51:37 Hypothyroidism 03687688 E03.9 Low TSH of 0.08 and normal free T4 and free T3 on 06/14/2020 Clinically reported fatigue, lack of energy She denies any palpitatio n shaking or excessive sweating but reported swelling of the lower part of her neck. Limited physical exam due to virtual visit Evaluate for thyromegal y by thyroid ultrasound Continue current liothyroni ne 5 g every a.m. Decrease Synthroid 75 g every a.m. Repeat TSH, free T4 and free T3 after 1 month Further adjustment as appropriat e to keep levels within normal range [id number] THAIS MORA MD ENDOCRINO [facility] [address] [place] [address] 04/02/2021 13:33:35 04/02/2021 14:59:12 Hypothyroidism 56458303 E03.9 TSH of 0.4, free T4 of 0.87 and free T3 of 2.94On 03/26/2021 linically reported fatigue, lack of energy and Hit intoleranc e She denies any palpitatio n shaking or excessive sweating but reported swelling of the lower part of her neck. Limited physical exam due to virtual visit Further increase Synthroid 75 g every a.m.Contin ue liothyroni ne 5 g every a.m. and 5 g every bedtimeRep eat TSH, free T4 and free T3 after 6 weeks Further adjustment as appropriat e to keep levels within normal range [id number] THAIS MORA MD ENDOCRINO [facility] [address] [address] 03/27/2022 15:06:05 03/27/2022 17:16:00 Hypothyroidism 74855560 E03.9 Reported intermitte nt palpitatio ns Significan t weight gain Continue current Synthroid 88 g every a.m. Continue liothyroni ne 5 g every a.m. Patient was instructed on the appropriat e method of levothyrox ine administra tion to be taken every a.m. on an empty stomach as new food, drinks or other medication s for at least 30 minutes. PPI and calcium -containin g preparatio ns is preferred to be given at least of her hours before or after levothyrox in therapy. Repeat TSH, free T4 and free T3 Further adjustment as appropriat e to keep levels within normal range Morbid obesity 852951932 E66.01 Current BMI of 35.2 and current weight of 205 from 198 last year Admitted not eating healthy She qualifies right. For pharmacolo gic therapy Prescribed Wellbutrin for depression . I recommende d to start Wellbutrin as indicated by the prescriber as it helps with weight loss. He also discussed the importance of lifestyle interventi on i.e. low-calori e diet and activity Consider pharmacolo gic therapy next office visit Provided with 1800-calor ie meal plan Patient verbalized understand ing and agreed with the above mentioned plan of care. [id number] ALICIA ALARCON APRN [facility] [address] [place] [address] 12/09/2022 15:08:06 12/09/2022 15:44:46 Hypothyroidism 61804831 E03.9 Reported intermitte nt palpitatio ns Continue current Synthroid 88 g every a.m. Continue liothyroni ne 5 g every a.m. Patient was instructed on the appropriat e method of levothyrox ine administra tion to be taken every a.m. on an empty stomach as new food, drinks or other medication s for at least 30 minutes. PPI and calcium -containin g preparatio ns is preferred to be given at least of her hours before or after levothyrox in therapy. Repeat TSH, free T4 and free T3 Further adjustment as appropriat e to keep levels within normal range Morbid obesity 351228450 E66.01 Current BMI of 31.1 and current weight of 181 (she weighed at home this morning was 175) Admitted not eating healthy discussed the importance of lifestyle interventi on i.e. low-calori e diet and activityCo nsider pharmacolo gic therapy next office visitProvi ded with 1800-calor ie meal planPatien t verbalized understand ing and agreed with the above mentioned plan of care. [id number] KENROY PALACIOS MD [facility] [address] [place] [address] 05/13/2023 09:27:54 05/13/2023 10:42:14 Recurrent urinary tract infection 467965893 N39.0 has seen multiple urologists has tried methanamin e but currently on daily nitrofurna toin. 50mch of the medication . pt will see her urologist to d/c the nitrofuran toin and use the methanamin e urine dip neg today. most importantl y is for her to use the esrogen cream DAILY for now. Genital li rosales sclerosus 529034079 L90.0 using the clobetasol [id number] DEANNE JUSTIN MD UROLOGY [facility] [address] [facility] [address] [id number] 09/15/2023 10:12:09 09/15/2023 11:13:24 Recurrent urinary tract infection 449065260 N39.0 now needs cystoscopy Increased frequency of urination 006606703 R35.0 [id number] DEANNE JUSTIN MD SURGERY SCHEDULE [address] [place] [address] 09/26/2023 12:09:05 09/26/2023 12:14:45 [id number] ALICIA ALARCON APRN [facility] [address] [place] [address] 1 12/08/2023 14:51:34 12/08/2023 15:31:38 Hypothyroidism 60987843 E03.9 Continue current Synthroid 75 g every a.m. Continue liothyroni ne 5 g every a.m. Patient was instructed on the appropriat e method of levothyrox ine administra tion to be taken every a.m. on an empty stomach as new food, drinks or other medication s for at least 30 minutes. PPI and calcium -containin g preparatio ns is preferred to be given at least of her hours before or after levothyrox in therapy. Repeat TSH, free T4 and free T3 Further adjustment as appropriat e to keep levels within normal range Morbid obesity 831378657 E66.01 Current BMI of 31.9 and current weight of 186 (she weighed at home this morning was 175) Admitted not eating healthy discussed the importance of lifestyle interventi on i.e. low-calori e diet and activityCo nsider pharmacolo gic therapy next office visitProvi ded with 1500-calor ie meal planPatien t verbalized understand ing and agreed with the above mentioned plan of care. Cramp in lower limb 4499 13952 R25.2 Fatigue 81590515 R53.83 Hyperlipidemia 42650643 E78.5 [id number] MONTRELL REED APRN-[facility]ELYN [facility] [address] [place] [address] 10/27/2024 14:57:31 10/27/2024 16:39:59 Atrophic vaginitis 63526411 N95.2 Gynecologi c examination 89542170 Z01.419 Discussed routine well woman exams, mammograms , colonoscop ies after age 45 or sooner if a strong family history, bone density scans once postmenopa usal. Eat a healthy diet and exercise regularly. Consider calcium and vitamin D supplement ation for healthy bones. Menopausal symptom 41457 002 N95.1 Consider Equelle and Bonafide products such as Thermella, Reveree Plus etc. Should she decide to try HRT again I think her risk of breast cancer is low. I found her Tyrer Cuzik score is 7%. [id number] ALICIA ALARCON APRN [facility] [address] [place] [address] 12/06/2024 15:24:54 12/06/2024 15:41:00 Hypothyroidism 66055780 E03.9 Continue current Synthroid 75 g every a.m. Continue liothyroni ne 5 g every a.m. Patient was instructed on the appropriat e method of levothyrox ine administra tion to be taken every a.m. on an empty stomach as new food, drinks or other medication s for at least 30 minutes. PPI and calcium -containin g preparatio ns is preferred to be given at least of her hours before or after levothyrox in therapy. Repeat TSH, free T4 and free T3 Further adjustment as appropriat e to keep levels within normal range Morbid obesity 808950642 E66.01 Current BMI of 33.3 and current weight of 194 Admitted not eating healthy discussed the importance of lifestyle interventi on i.e. low-calori e diet and activityCo nsider pharmacolo gic therapy next office visitProvi ded with 1500-calor ie meal planPatien t verbalized understand ing and agreed with the above mentioned plan of care. Health Concerns Section Related Observation LastModified by Organization Detai ls LastModified Time None Recorded Concern Status LastModified by Organization Details LastModified Time None Recorded Advance Directives Directive None Recorded Payers Insurance Date Sequence Insurance Name Policy Number Policy Rider Covered Member ID Rider Member ID Guarantor Name 04/11/2025 PAYMENT PLAN Raiza Rojo 12/30/2022 PAYMENT PLAN Raiza Rojo 06/21/2019 PAYMENT PLAN Raiza Rojo 12/04/2024 1 [place] [id number] Raiza Rojo [id number] Raiza Rojo 12/11/2023 1 [employer] ([place]) [id number] Raiza Pak [id number] Raiza Rojo 01/09/2022 PAYMENT PLAN Raiza Rojo 12/04/2024 2 [place] [id number] Raiza Rojo [id number] Raiza Rojo OBGyn Episode No OBEpisode recorded.
--- OUTSIDE RECORDS SUMMARY | 2025-05-02 11:58 | XMS_ITS | Data Portability ---
Author Organization [facility] [place] Address [address] [place] [address] Assessment No assessment recorded. Plan of Treatment Reminders Order Date Submit Date Provider Last Modified By Organization Details Last Modified Time Details Appointments None recorded. Lab urinalysis, dipstick [address] [facility] [address], [address], 16:19:24 Referral None recorded. Procedures None recorded. Surgeries None recorded. Imaging None recorded. Medication Orders methenamine hippurate 1 gram tablet 2022 023 [facility], [address] [place] [address], [id number], 3 16:28:07 ascorbic acid (vitamin C) 500 mg tablet [address] [facility], [address] [place] [address], [id number], 3 16:28:48 Patient TargetsNo targets recorded. Patient InstructionsNo instructions recorded. Reason for Referral None Reported. Results Created Date Observation Date Name Description Value Unit Range Abnormal Flag Note LastModifiedBy Organization Detail LastModifiedTime 01/02/2001/01/2023 urina lysis , dipst ick Leukocytes (reference range) negati ve Not Available [facility] [address], [address], 01/01/2023 15:24:23 01/02/20 23 01/01/2023 urina lysis , dipst ick Nitrite (reference range:) negati ve Not Available [address], [address], 01/01/2023 15:24:23 01/02/20 23 01/01/2023 urina lysis , dipst ick Urobilinogen (reference range) 1 Not Available [address], [address], 01/01/2023 15:24:23 01/02/20 23 01/01/2023 urina lysis , dipst ick Protein (reference range) negati ve Not Available [address], [address], 01/01/2023 15:24:23 01/02/20 23 01/01/2023 urina lysis , dipst ick pH (reference range 5-8.5) 7.0 Not Available [address], [address], 01/01/2023 15:24:23 01/02/20 23 01/01/2023 urina lysis , dipst ick Blood (reference range:) negati ve Not Available [address], [address], 01/01/2023 15:24:23 01/02/20 23 01/01/2023 urina lysis , dipst ick Specific [place] (reference range) 1.020 Not Available [address], [address], 01/01/2023 15:24:23 01/02/20 23 01/01/2023 urina lysis , dipst ick Ketone (reference range) negati ve Not Available [address], [address], 01/01/2023 15:24:23 01/02/20 23 01/01/2023 urina lysis , dipst ick Bilirubin (reference range) negati ve Not Available [place] [address], [address], 01/01/2023 15:24:23 01/02/20 23 01/01/2023 urina lysis , dipst ick Glucose (reference range) negati ve Not Available [place] [address], [address], 01/01/2023 15:24:23 Result Notes None recorded. Problems Name Problem SNOMED Code Status Onset Date Resolution Date Notes Provider Name and Address Organization Details Recorded Time Urinary tract infectious disease 66466080 Active 2022 Jeanette Rigoberto winslow BENI Barriga LPNT [facility] & [place] 3 11:58:54 Thyroiditis 33359112 Active 2022 Jeanette Rigoberto winslow [facility]ENI [facility]iga [facility] - [place] & [place] 3 14:37:52 Environmental allergy 632359664 Active 2022 Jeanette Rigoberto winslow BENI [facility]iga [facility] - [place] & [place] 3 14:38:00 Problem Notes None recorded. Procedures Surgical History Date Name Laterality Status Provider Name and Address Organization Details Recorded Time Myringotomy laser-assist completed Usamasugey Barriga [facility] - [place] & [place] 12/25/2022 11:59:59 tonsillectomy completed Jeanette Rigoberto Barriga [facility]NT [facility] & [place] 12/25/2022 12:00:07 Total Hysterectomy completed Radha Eva Barriga [facility]NT [facility] & [place] 01/01/2023 14:39:05 Imaging Results None recorded. Procedure Notes None recorded. Medical Equipment None Reported. Allergies Allergen ID Allergen Name Allergen Category Reaction Reaction Severity Criticality Documentation Date Start Date Code Code System Note Provider Name and Address Organization Details Recorded Time 23405 butorphan ol medicatio n Not available Not available Not available 12/25/2022 1841 RxNorm BENI Galloway [facility] & [place] 3 11:57:52 72564 Substance with sulfonami de structure and antibacte rial mechanism of action (substanc e) medicatio n Not available Not available Not available 12/25/2022 29133 8003 SNOMED BENI Galloway [facility] & [place] 3 11:58:01 Medications Name Sig Start Date Stop Date Status Note LastModified by Organization Details LastModified Time nitrofurant oin macrocrysta l 50 mg capsule TAKE 1 CAPSULE BY MOUTH AT BEDTIME MUST TAKE WITH FOOD/A MEAL 12/25 completed Not Available Not Available Not Available Vitamin C 500 mg tablet TAKE 1 TABLET BY MOUTH THREE TIMES DAILY active Not Available Not Available No t Available cephalexin 250 mg capsule TAKE 1 CAPSULE BY MOUTH 4 TIMES DAILY active Not Available Not Available No t Available liothyronin e 5 mcg tablet TAKE 1 TABLET BY MOUTH IN THE MORNING WITH SYNTHROID AND 1 AT BEDTIME active Not Available Not Available No t Available methenamine hippurate 1 gram tablet TAKE 1 TABLET BY MOUTH TWICE DAILY active Not Available Not Available No t Available Synthroid 88 mcg tablet TAKE 1 TABLET BY MOUTH ONCE DAILY IN THE MORNING FOR 90 DAYS 12/25 completed Not Available Not Available Not Available Synthroid 75 mcg tablet TAKE 1 TABLET BY MOUTH ONCE DAILY IN THE MORNING FOR 90 DAYS. REPEAT TSH IN 6 WEEKS active Not Available Not Available No t Available levofloxaci n 500 mg tablet TAKE 1 TABLET BY MOUTH ONCE DAILY FOR 5 DAYS 12/25 completed Not Available Not Available Not Available estradiol 0.01% (0.1 mg/gram) vaginal cream USE 1 GRAM VAGINALLY ONCE DAILY AT NIGHT FOR VAGINAL ATROPHY. active Not Available Not Available No t Available fluticasone propionate 50 mcg/actuati on nasal spray,suspe nsion USE 1 SPRAY(S) IN EACH NOSTRIL ONCE DAILY active Not Available Not Available No t Available Vitals Date Recorded Body height Body mass index (BMI) Body weight Body temperature Provider Name and Address Organization Details Last Updated DateTime 01/01/2023 165.1 cm 29.1 kg/m2 26148.66 g 98 [degF] Jeanette OKEEFE [facility] & [place] 01/01/2023 14:34:28 Social History None recorded. Functional Status Question Answer Note LastModified by Organization D etails LastModified Time What is your level of alcohol consumption? None [email or web address] Information not available 12/25/2022 Mental Status None recorded. Family History Relationship Description Onset Age of this Age Resolved Age Notes LastModified by Organization Details LastModified Time Brother Family history unknown [email or web address] Not available 2022 14:38:48 Father Family history unknown [email or web address] Not available 2022 14:38:48 Sister Family history unknown Not available 2022 14:38:49 Mother Family history unknown [email or web address] Not available 2022 14:38:49 Medical History No medical history recorded. Gynecological HistoryNo gynecological history recorded. Obstetrics History GPAL:G 0 P 0 0 0 0 Past Encounters Encounter ID Performer Location Encounter Start Date Encounter Closed Date Diagnosis/Indication Diagnosis SNOMED-CT Code Diagnosis ICD10 Code Diagnosis Note [id number] Fawad Miles Jr, MD [facility] [address] [address] 01/01/2023 14:17:28 01/01/2023 15:19:26 Urinary tract infectious disease 87225817 N39.0 Patient with history of recurring urinary tract infections . She is done well with prophylact ic nitrofuran toin but had to stop it recently due to hair loss. She states that she has recurrent symptoms of UTI but a urine today is completely normal. We discussed other options for prevention of symptoms. We are going to try methenamin e plus vitamin-C. This does not work we discussed possibly Bactrim single strength. Health Concerns Section Related Observation LastModified by Organization Detai ls LastModified Time None Recorded Concern Status LastModified by Organization Details LastModified Time None Recorded Advance Directives Directive None Recorded Payers Insurance Date Sequence Insurance Name Policy Number Policy Ridre Covered Member ID Rider Member ID Guarantor Name 01/01/2023 1 [place] [id number] Karvel Pasha [id number] Karvel Pasha OBGyn Episode No OBEpisode recorded.
== END 2025-04-28 23:59 | disposition home or self-care (01) ==
LOC: LAB.DROPOF 05-02 11:56
PROVIDERS: PCP Family Medicine; Visit Provider Nurse Practitioner
DX: B35.1 Tinea unguium (principal)
CPT/HCPCS: 87101; 87220

== ENCOUNTER 2025-10-04 14:46 | Outpatient (CLI) | payer BC, SELFPAY | END 2025-10-04 23:59 | disposition home or self-care (01) | LOC: DIETICIAN 14:46 | PROVIDERS: PCP Family Medicine; Visit Provider Nurse Practitioner Family | DX: N28.9 Disorder of kidney and ureter, unspecified (principal) | CPT/HCPCS: 97802 ==